=== PATIENT | male | born 1965 | race Caucasian/White ===

== ENCOUNTER → 2018-03-27 | Day surgery (SDC) | payer OTHER ==
[~2018-03-27] MED LIST: ATORVASTATIN CA20 MG PO; FENTANYL CITRATE/PF 100MCG/2 ML INJ ONE; LIDOCAINE HCL 2% LOCAL INJ 5 ML SDV VIAL INJ ONE; MIDAZOLAM HCL 2 MG/2 ML VIAL ONE; PROPOFOL IV EMULSION 10 MG/ML 20 ML VIAL ONE
--- OUTSIDE RECORDS SUMMARY | 2018-03-27 12:59 | XMS REPORT | Continuity of Care Document ---
Author Author [facility] Interface Address Unknown Phone Unavailable Problems Problem Status Onset Date Classification Date Reported Comments Source Anterior rhinorrhea 03/11/2018 Diagnosis 03/11/2018 [facility] Body mass index 40+ - severely obese 03/11/2018 Diagnosis 03/11/2018 [facility] Ear pressure sensation 03/11/2018 Diagnosis 03/11/2018 [facility] Congestion of nasal sinus 03/11/2018 Diagnosis 03/11/2018 [facility] Morbid obesity 12/03/2017 Diagnosis 12/04/2017 [facility] Acute bronchitis 12/03/2017 Diagnosis 12/04/2017 [facility] Influenza-like symptoms 12/03/2017 Diagnosis 12/04/2017 [facility] Acute pharyngitis 12/03/2017 Diagnosis 12/04/2017 [facility] Expiratory wheezing 02/27/2017 Diagnosis 02/27/2017 [facility] Influenza-like illness 02/27/2017 Diagnosis 02/27/2017 [facility] Posterior rhinorrhea 02/27/2017 Diagnosis 02/27/2017 [facility] Morbid obesity Active Problem 03/26/2018 [facility] Body mass index 40.0-44.9, adult Active Problem 02/14/2017 [facility] Prediabetes Active Problem 03/26/2018 [facility] Pure hypercholesterolemia Active Problem 03/26/2018 [facility] Mixed hyperlipidemia Active Problem 03/26/2018 [facility] Impotence of organic origin Active Problem 03/26/2018 [facility] Colon polyp Active Problem 02/14/2017 [facility] Testicular hypofunction Active Problem 03/26/2018 [facility] Personal history of malignant melanoma of skin Active Problem 03/26/2018 [facility] Right maxillary sinusitis Active Diagnosis 03/22/2017 [facility] Internal hemorrhoid, bleeding Active Diagnosis 02/02/2018 [facility] Neck pain Active Diagnosis 02/02/2018 [facility] Polyp of sigmoid colon, unspecified type Active Diagnosis 02/02/2018 [facility] Cervical radiculopathy Active Diagnosis 02/02/2018 [facility] Bronchitis Active Diagnosis 03/22/2017 [facility] Cough Active Diagnosis 03/22/2017 [facility] Screening for prostate cancer Active Diagnosis 02/21/2017 [facility] Routine physical examination Active Diagnosis 02/21/2017 [facility] Screening for colon cancer Active Diagnosis 02/21/2017 [facility] Elevated BP without diagnosis of hypertension Active Diagnosis 02/21/2017 [facility] Screening for HIV Active Diagnosis 02/21/2017 [facility] Prediabetes Active Problem 02/10/2016 [facility] Body mass index of 40.0-44.9 in adult Active Problem 02/10/2016 [facility] Hx of melanoma of skin Active Problem 04/08/2015 [facility] ED Active Problem 04/08/2015 [facility] High cholesterol Active Problem 04/08/2015 [facility] Low testosterone Active Problem 04/08/2015 [facility] Morbid obesity with BMI of 40.0-44.9, adult Active Problem 04/08/2015 [facility] Routine general medical examination at a health care facility Active Diagnosis 09/01/2014 [facility] Family history of early CAD Active Diagnosis 09/01/2014 [facility] Family history of diabetes mellitus Active Diagnosis 09/01/2014 [facility] Left knee pain Active Diagnosis 01/03/2015 [facility] Acute meniscal injury of left knee Active Diagnosis 01/03/2015 [facility] Chondromalacia Active Diagnosis 01/03/2015 [facility] Physical exam Active Diagnosis 03/24/2016 [facility] Needs flu shot Active Diagnosis 03/24/2016 [facility] Neoplasm of Uncertain Behavior of Skin Problem 03/11/2018 [facility] Conjunctivitis Problem 03/11/2018 [facility] Common Cold Problem 03/11/2018 [facility] Acute Sinusitis Problem 03/11/2018 [facility] Acute Upper Respiratory Infection Problem 03/11/2018 [facility] Allergic Rhinitis Problem 03/11/2018 [facility] Congestion of Nasal Sinus Problem 03/11/2018 [facility] Influenza Problem 03/11/2018 [facility] Influenza-like Symptoms Problem 03/11/2018 [facility] Wheezing Problem 03/11/2018 [facility] Cough Problem 03/11/2018 [facility] Medications Medication Details Route Status Patient Instructions Ordering Provider Order Date Source Cyclobenzaprine HCl 1 tablet as needed Orally Active 10 mg Orally Three times a day El 01/30/2018 [facility] Hydrocortisone Acetate 1 suppository Rectal Active 25 MG Rectal Three times a day PRN El 01/30/2018 [facility] Lipitor 1 tablet Orally Active 10 mg Orally qd LAST REFILL, NEEDS TO BE SEEN El 12/08/2017 [facility] DuoNeb 3 ml Inhalation Active 0.5-2.5 (3) MG/3ML Inhalation every 6 hrs El 03/07/2017 [facility] Ipratropium [place] 1 dose Inhalation Inactive 0.02 % Inhalation q 6 hours [facility] 03/07/2017 [facility] Ipratropium [place] HFA 2 puffs Inhalation Active 17 MCG/ACT Inhalation Four times a day El 03/05/2017 [facility] Tessalon Perles 1 capsule as needed Orally Active 100 mg Orally Three times a day El 03/05/2017 [facility] Cheratussin AC 5 ml Orally Active 100-10 MG/5ML Orally every 4 hrs El 03/05/2017 [facility] Albuterol Sulfate HFA 2 puffs as needed Inhalation Active 108 (90 Base) MCG/ACT Inhalation every 4-6 hrs El 03/05/2017 [facility] Doxycycline Hyclate 1 capsule Orally Active 100 mg Orally every 12 hrs El 03/05/2017 [facility] Ceftin 1 tablet Orally Active 250 MG Orally Twice a day El 03/01/2017 [facility] ProAir HFA 2 puffs as needed Inhalation Active 108 (90 Base) MCG/ACT Inhalation every 4 hrs El 03/01/2017 [facility] Sildenafil Citrate TAKE 2-5 TABLETS ONCE DAILY (ONLY IF NEEDED) FOR SEXUAL ACTIVITY orally Active 20 MG orally LAST REFILL, MUST SEE DOCTOR [facility] 05/09/2016 [facility] Atorvastatin Calcium 1 tablet Orally Active 10 MG Orally Once a day [facility] 04/10/2016 [facility] Viagra 1 tablet as needed Orally Active 100 MG Orally Once a day El 03/22/2016 [facility] Sildenafil Citrate 2-5 tablet Orally Active 20 MG Orally once a day (MUST SEE DOCTOR BEFORE NEXT REFILL) [facility] 02/09/2016 [facility] Sildenafil Citrate 1 tablet Orally Active 20 mg Orally 2 to 5 prn El 05/17/2015 [facility] Viagra 1 tablet as needed Orally Active 100 mg Orally Once a day as directed El 03/30/2015 [facility] Androderm 1 patch to skin at bedtime Transdermal Active 4 MG/24HR Transdermal Once a day El 12/30/2014 [facility] Androderm 1 patch to skin at bedtime Transdermal Active 4 MG/24HR Transdermal Once a day El 12/30/2014 [facility] Testim one tube Transdermal No Longer Active 50 MG/5GM Transdermal q am El 09/23/2014 [facility] Cialis 1 tablet Orally No Longer Active 5 MG Orally Once a day [place] 09/16/2014 [facility] Fortesta 2 pumps to each thigh Transdermal Active 10 MG/ACT (2%) Transdermal daily El 09/16/2014 [facility] Cialis 1 tablet per 3 days Orally Active 20 mg Orally as directed El 08/30/2014 [facility] Cheratussin AC 5 ml Orally Active 100-10 MG/5ML Orally every 4 hrs El [facility] Sildenafil Citrate TAKE 2-5 TABLETS BY MOUTH EVERY DAY NEEDED FOR SEXUAL ACTIVITY NA Active 20 MG El [facility] Naproxen 1 tablet Orally Active 500 MG Orally as needed (prn) El [facility] Atorvastatin Calcium 1 tablet Orally Active 10 mg Orally Once a day El [facility] Sildenafil Citrate TAKE 2-5 TABLETS BY MOUTH ONCE DAILY NEEDED FOR SEXUAL ACTIVITY NA Active 20 MG El [facility] ProAir HFA 2 puffs as needed Inhalation Active 108 (90 Base) MCG/ACT Inhalation every 4 hrs [facility] Ceftin 1 tablet Orally Active 250 MG Orally Twice a day [facility] 24 HR Testosterone 0.167 MG/HR Transdermal System [Androderm] Androderm 4 mg/24 hr transdermal 24 hour patch Active [facility] benzonatate 100 MG Oral Capsule benzonatate 100 mg capsule TAKE ONE CAPSULE BY MOUTH 3 TIMES A DAY Active [facility] Brompheniramine Maleate 0.4 MG/ML / Dextromethorphan Hydrobromide 2 MG/ML / Pseudoephedrine Hydrochloride 6 MG/ML Oral Solution [id number] 2 mg-30 mg-10 mg/5 mL syrup TAKE 10 ML EVERY 4 HOURS BY ORAL ROUTE NEEDED. Active [facility] tadalafil 5 MG Oral Tablet [Cialis] Cialis 5 mg tablet TAKE ONE TABLET BY MOUTH EVERY DAY Active [facility] 1 ML methylprednisolone acetate 80 MG/ML Injection [Depo-Medrol] Depo-Medrol 80 mg/mL suspension for injection 80 mg/mL IM injectable x 1 Active [facility] Fluticasone propionate 0.05 MG/ACTUAT Metered Dose Nasal [place] fluticasone 50 mcg/actuation nasal spray,suspension [place] 2 sprays every day by intranasal route as directed for 30 days. Active [facility] Hydrocodone Bitartrate 7.5 MG / Ibuprofen 200 MG Oral Tablet hydrocodone 7.5 mg-ibuprofen 200 mg tablet TAKE 1 TO 2 TABLETS BY MOUTH EVERY 4 HOURS NEEDED FOR PAIN Active [facility] 200 ACTUAT Albuterol 0.09 MG/ACTUAT Metered Dose Inhaler [ProAir] ProAir HFA 90 mcg/actuation aerosol inhaler Inhale 2 puffs every 4 hours by inhalation route as needed. Active [facility] Suprep Bowel Prep Kit 17.5 gram-3.13 gram-1.6 gram oral solution Suprep Bowel Prep Kit 17.5 gram-3.13 gram-1.6 gram oral solution TAKE DIRECTED Active [facility] Oseltamivir 75 MG Oral Capsule [Tamiflu] Tamiflu 75 mg capsule Take 1 capsule twice a day by oral route for 5 days. Active [facility] 5000 MG Testosterone 0.01 MG/MG Topical Gel testosterone 50 mg/5 gram (1 %) transdermal gel APPLY 1 PACKET EVERY MORNING Active [facility] Brompheniramine Maleate 0.4 MG/ML / Dextromethorphan Hydrobromide 2 MG/ML / Pseudoephedrine Hydrochloride 6 MG/ML Oral Solution [Bromfed DM] Bromfed DM 2 mg-30 mg-10 mg/5 mL syrup Take 10 mL every 4 hours by oral route as needed. Active [facility] atorvastatin 10 MG Oral Tablet atorvastatin 10 mg tablet TAKE 1 TABLET BY MOUTH EVERY DAY Active [facility] Azithromycin 250 MG Oral Tablet azithromycin 250 mg tablet Active [facility] Medrol (Kahlil) 4 mg tablets in a dose pack Medrol (Kahlil) 4 mg tablets in a dose pack Take by oral route as directed Active [facility] benzonatate 100 MG Oral Capsule [Tessalon Perles] Tessalon Perles 100 mg capsule Take 1 capsule 3 times a day by oral route as needed for 5 days. at least 6-8 hours apart Active [facility] Esomeprazole 20 MG / Naproxen 500 MG Delayed Release Oral Tablet [Vimovo] Vimovo 500 mg-20 mg tablet,immediate and delay release Active [facility] benzonatate 200 MG Oral Capsule benzonatate 200 mg capsule Take 1 capsule 3 times a day by oral route as directed for 10 days. Active [facility] Codeine Phosphate 2 MG/ML / Guaifenesin 20 MG/ML Oral Solution codeine 10 mg-guaifenesin 100 mg/5 mL oral liquid TAKE 1 TEASPOONFUL BY MOUTH EVERY 4 HOURS Active [facility] doxycycline hyclate 100 MG Oral Capsule doxycycline hyclate 100 mg capsule Active [facility] Albuterol 0.833 MG/ML / Ipratropium [place] 0.167 MG/ML Inhalant Solution ipratropium-albuterol 0.5 mg-3 mg(2.5 mg base)/3 mL nebulization soln USE 3ML VIA NEBULIZER EVERY 6 HOURS Active [facility] methylprednisolone 4 mg tablets in a dose pack methylprednisolone 4 mg tablets in a dose pack TAKE DIRECTED. Active [facility] Naproxen 500 MG Oral Tablet naproxen 500 mg tablet Active [facility] Omeprazole 40 MG Delayed Release Oral Capsule omeprazole 40 mg capsule,delayed release Active [facility] Ventolin HFA 90 mcg/actuation aerosol inhaler Ventolin HFA 90 mcg/actuation aerosol inhaler INHALE 2 PUFFS PO Q 4 TO 6 HOURS PRN Active [facility] 0.5 ML influenza A virus A/[place] (H3N2) antigen 0.03 MG/ML / influenza A virus A/EO0301 (H1N1) antigen 0.03 MG/ML / influenza B virus B/ antigen 0.03 MG/ML / influenza B virus B//[id number]/2016 antigen 0.03 MG/ML Prefilled Syringe [Flucelvax Quadrivalent ] Flucelvax Quad (PF) 60 mcg (15 mcg x 4)/0.5 mL IM syringe TO BE ADMINISTERED BY PHARMACIST FOR IMMUNIZATION Active [facility] Allergies, Adverse Reactions, Alerts Substance Category Reaction Severity Reaction type Status Date Reported Comments Source N.K.D.A. Adverse Reaction Info Not Available Adverse Reaction Active 01/30/2018 [facility] Immunizations Immunization Date Given Site Status Last Updated Comments Source influenza, injectable, quadrivalent 02/17/2018 completed [facility] Tdap 07/12/2011 completed [facility] yellow fever 07/12/2011 completed [facility] typhoid, ViCPs 07/12/2011 completed [facility] influenza, seasonal, injectable 12/21/2010 completed [facility] Results Order Name Results Value Reference Range Date Interpretation Comments Source RESULT negative 12/03/2017 [facility] SWAB LOCATION Left and Right tonsillar pillars 12/03/2017 [facility] Influenza A negative 12/03/2017 [facility] Influenza B negative 12/03/2017 [facility] Influenza A negative 02/27/2017 [facility] Influenza B negative 02/27/2017 [facility] Influenza A negative 02/29/2016 [facility] Influenza B negative 02/29/2016 [facility] Influenza A positive 08/15/2015 [facility] Influenza B negative 08/15/2015 [facility] Vital Signs Vital Sign Value Date Comments Source Diastolic (mm Hg) 86 03/10/2018 [facility] Height 74 03/10/2018 [facility] Systolic (mm Hg) 124 03/10/2018 [facility] Weight 340 03/10/2018 [facility] Weight 354 01/30/2018 [facility] Height 72 01/30/2018 [facility] Heart Rate 66 01/30/2018 [facility] Diastolic (mm Hg) 80 01/30/2018 [facility] Systolic (mm Hg) 122 01/30/2018 [facility] Diastolic (mm Hg) 74 12/03/2017 [facility] Height 74 12/03/2017 [facility] Systolic (mm Hg) 118 12/03/2017 [facility] Weight 340 12/03/2017 [facility] Weight 347 03/19/2017 [facility] Height 72 03/19/2017 [facility] Heart Rate 76 03/19/2017 [facility] Diastolic (mm Hg) 84 03/19/2017 [facility] Systolic (mm Hg) 128 03/19/2017 [facility] Weight 338 03/05/2017 [facility] Height 72 03/05/2017 [facility] Heart Rate 88 03/05/2017 [facility] Diastolic (mm Hg) 66 03/05/2017 [facility] Systolic (mm Hg) 120 03/05/2017 [facility] Weight 343 03/01/2017 [facility] Height 72 03/01/2017 [facility] Heart Rate 74 03/01/2017 [facility] Diastolic (mm Hg) 80 03/01/2017 [facility] Systolic (mm Hg) 140 03/01/2017 [facility] Diastolic (mm Hg) 64 02/27/2017 [facility] Height 74 02/27/2017 [facility] Systolic (mm Hg) 118 02/27/2017 [facility] Weight 325 02/27/2017 [facility] Weight 348 02/18/2017 [facility] Height 72 02/18/2017 [facility] Heart Rate 73 02/18/2017 [facility] Diastolic (mm Hg) 90 02/18/2017 [facility] Systolic (mm Hg) 140 02/18/2017 [facility] Weight 322 03/22/2016 [facility] Height 72 03/22/2016 [facility] Diastolic (mm Hg) 70 03/22/2016 [facility] Systolic (mm Hg) 128 03/22/2016 [facility] Diastolic (mm Hg) 78 02/29/2016 [facility] Height 74 02/29/2016 [facility] Systolic (mm Hg) 120 02/29/2016 [facility] Weight 325 02/29/2016 [facility] Diastolic (mm Hg) 82 08/15/2015 [facility] Height 74 08/15/2015 [facility] Systolic (mm Hg) 120 08/15/2015 [facility] Weight 325 08/15/2015 [facility] Weight 331 04/18/2015 [facility] Height 72 04/18/2015 [facility] Heart Rate 78 04/18/2015 [facility] Diastolic (mm Hg) 80 04/18/2015 [facility] Systolic (mm Hg) 126 04/18/2015 [facility] Weight 325 12/30/2014 [facility] Height 72 12/30/2014 [facility] Heart Rate 63 12/30/2014 [facility] Diastolic (mm Hg) 78 12/30/2014 [facility] Systolic (mm Hg) 130 12/30/2014 [facility] Weight 325 12/21/2014 [facility] Height 72 12/21/2014 [facility] Diastolic (mm Hg) 80 12/21/2014 [facility] Systolic (mm Hg) 128 12/21/2014 [facility] Weight 320 09/16/2014 [facility] Height 72 09/16/2014 [facility] Heart Rate 72 09/16/2014 [facility] Diastolic (mm Hg) 84 09/16/2014 [facility] Systolic (mm Hg) 120 09/16/2014 [facility] Weight 320 08/30/2014 [facility] Height 72 08/30/2014 [facility] Heart Rate 80 08/30/2014 [facility] Diastolic (mm Hg) 74 08/30/2014 [facility] Systolic (mm Hg) 130 08/30/2014 [facility] Encounters Location Location Details Encounter Type Encounter Number Reason For Visit Attending Provider ADM Date DC Date Status Source [facility] PHYSICAL [id number] 08/30/2014 08/30/2014 [facility] PHYSICAL [id number] 08/30/2014 08/30/2014 [facility] PHYSICAL [id number] 08/30/2014 08/30/2014 [facility] PHYSICAL [id number] 08/30/2014 08/30/[address] [facility] PHYSICAL [id number] 08/30/2014 08/30/[address] [facility] PHYSICAL [id number] 08/30/2014 08/30/[address] [facility] PHYSICAL [id number] 08/30/2014 08/30/[address] [facility] PHYSICAL [id number] 08/30/2014 08/30/2014 [facility] PHYSICAL [id number] 08/30/2014 08/30/[address] [facility] PHYSICAL [id number] 08/30/2014 08/30/[address] [facility] PHYSICAL [id number] 08/30/2014 08/30/2014 [facility] PHYSICAL [id number] 08/30/2014 08/30/2014 [facility] PHYSICAL [id number] 08/30/2014 08/30/2014 [facility] PHYSICAL [id number] 08/30/2014 08/30/2014 [facility] PHYSICAL [id number] 08/30/2014 08/30/2014 [facility] PHYSICAL [id number] 08/30/2014 08/30/2014 [facility] PHYSICAL [id number] 08/30/2014 08/30/2014 [facility] PHYSICAL [id number] 08/30/2014 08/30/2014 [facility] PHYSICAL [id number] 08/30/2014 08/30/2014 [facility] 2 week follow up [id number] 09/16/2014 09/16/2014 [facility] 2 week follow up [id number] 09/16/2014 09/16/2014 [facility] 2 week follow up [id number] 09/16/2014 09/16/2014 [facility] 2 week follow up [id number] 09/16/2014 09/16/2014 [facility] 2 week follow up [id number] 09/16/2014 09/16/2014 [facility] 2 week follow up [id number] 09/16/2014 09/16/2014 [facility] 2 week follow up [id number] 09/16/2014 09/16/2014 [facility] 2 week follow up [id number] 09/16/2014 09/16/2014 [facility] 2 week follow up [id number] 09/16/2014 09/16/2014 [facility] 2 week follow up [id number] 09/16/2014 09/16/2014 [facility] 2 week follow up [id number] 09/16/2014 09/16/2014 [facility] 2 week follow up [id number] 09/16/2014 09/16/2014 [facility] 2 week follow up [id number] 09/16/2014 09/16/2014 [facility] 2 week follow up [id number] 09/16/2014 09/16/2014 [facility] 2 week follow up [id number] 09/16/2014 09/16/2014 [facility] 2 week follow up [id number] 09/16/2014 09/16/2014 [facility] 2 week follow up [id number] 09/16/2014 09/16/2014 [facility] 2 week follow up [id number] 09/16/2014 09/16/2014 [facility] Unknown [id number] 09/23/2014 09/23/2014 [facility] Unknown [id number] 09/23/2014 09/23/2014 [facility] Unknown [id number] 09/23/2014 09/23/2014 [facility] Unknown [id number] 09/23/2014 09/23/2014 [facility] Unknown [id number] 09/23/2014 09/23/2014 [facility] Unknown [id number] 09/23/2014 09/23/2014 [facility] Unknown [id number] 09/23/2014 09/23/2014 [facility] Unknown [id number] 09/23/2014 09/23/2014 [facility] Unknown [id number] 09/23/2014 09/23/2014 [facility] Unknown [id number] 09/23/2014 09/23/2014 [facility] Unknown [id number] 09/23/2014 09/23/2014 [facility] Unknown [id number] 09/23/2014 09/23/2014 [facility] Unknown [id number] 09/23/2014 09/23/2014 [facility] Unknown [id number] 09/23/2014 09/23/2014 [facility] Unknown [id number] 09/23/2014 09/23/2014 [facility] Unknown [id number] 09/23/2014 09/23/2014 [facility] Unknown [id number] 09/23/2014 09/23/2014 [facility] Unknown [id number] 09/23/2014 09/23/2014 [facility] 3 MONTH FOLLOW UP [id number] 12/21/2014 12/21/2014 [facility] 3 MONTH FOLLOW UP [id number] 12/21/2014 12/21/2014 [facility] 3 MONTH FOLLOW UP [id number] 12/21/2014 12/21/[address] [facility] 3 MONTH FOLLOW UP [id number] 12/21/2014 12/21/2014 [facility] 3 MONTH FOLLOW UP [id number] 12/21/2014 12/21/2014 [facility] 3 MONTH FOLLOW UP [id number] 12/21/2014 12/21/2014 [facility] 3 MONTH FOLLOW UP [id number] 12/21/2014 12/21/2014 [facility] 3 MONTH FOLLOW UP [id number] 12/21/2014 12/21/2014 [facility] 3 MONTH FOLLOW UP [id number] 12/21/2014 12/21/2014 [facility] 3 MONTH FOLLOW UP [id number] 12/21/2014 12/21/2014 [facility] 3 MONTH FOLLOW UP [id number] 12/21/2014 12/21/2014 [facility] 3 MONTH FOLLOW UP [id number] 12/21/2014 12/21/2014 [facility] 3 MONTH FOLLOW UP [id number] 12/21/2014 12/21/2014 [facility] 3 MONTH FOLLOW UP [id number] 12/21/2014 12/21/2014 [facility] 3 MONTH FOLLOW UP [id number] 12/21/2014 12/21/2014 [facility] 3 MONTH FOLLOW UP [id number] 12/21/2014 12/21/2014 [facility] 3 MONTH FOLLOW UP [id number] 12/21/2014 12/21/2014 [facility] follow up on mri [id number] 12/30/2014 12/30/[address] [facility] follow up on mri [id number] 12/30/2014 12/30/2014 [facility] follow up on mri [id number] 12/30/2014 12/30/[address] [facility] follow up on mri [id number] 12/30/2014 12/30/[address] [facility] follow up on mri [id number] 12/30/2014 12/30/[address] [facility] follow up on mri [id number] 12/30/2014 12/30/[address] [facility] follow up on mri [id number] 12/30/2014 12/30/2014 [facility] follow up on mri [id number] 12/30/2014 12/30/2014 [facility] follow up on mri [id number] 12/30/2014 12/30/[address] [facility] follow up on mri [id number] 12/30/2014 12/30/2014 [facility] follow up on mri [id number] 12/30/2014 12/30/2014 [facility] follow up on mri [id number] 12/30/2014 12/30/2014 [facility] follow up on mri [id number] 12/30/2014 12/30/2014 [facility] follow up on mri [id number] 12/30/2014 12/30/2014 [facility] follow up on mri [id number] 12/30/2014 12/30/[address] [facility] follow up on mri [id number] 12/30/2014 12/30/2014 [facility] refill [id number] 02/09/2015 02/09/2015 [facility] refill [id number] 02/09/2015 02/09/2015 [facility] refill [id number] 02/09/2015 02/09/2015 [facility] refill [id number] 02/09/2015 02/09/2015 [facility] refill [id number] 02/09/2015 02/09/2015 [facility] refill [id number] 02/09/2015 02/09/2015 [facility] refill [id number] 02/09/2015 02/09/2015 [facility] refill [id number] 02/09/2015 02/09/2015 [facility] refill [id number] 02/09/2015 02/09/2015 [facility] refill [id number] 02/09/2015 02/09/2015 [facility] refill [id number] 02/09/2015 02/09/2015 [facility] refill [id number] 02/09/2015 02/09/2015 [facility] refill [id number] 02/09/2015 02/09/2015 [facility] refill [id number] 02/09/2015 02/09/2015 [facility] refill [id number] 02/09/2015 02/09/2015 [facility] Unknown [id number] 02/21/2015 02/21/2015 [facility] Unknown [id number] 02/21/2015 02/21/2015 [facility] Unknown [id number] 02/21/2015 02/21/2015 [facility] Unknown [id number] 02/21/2015 02/21/2015 [facility] Unknown [id number] 02/21/2015 02/21/2015 [facility] Unknown [id number] 02/21/2015 02/21/2015 [facility] Unknown [id number] 02/21/2015 02/21/2015 [facility] Unknown [id number] 02/21/2015 02/21/2015 [facility] Unknown [id number] 02/21/2015 02/21/2015 [facility] Unknown [id number] 02/21/2015 02/21/2015 [facility] Unknown [id number] 02/21/2015 02/21/2015 [facility] Unknown [id number] 02/21/2015 02/21/2015 [facility] Unknown [id number] 02/21/2015 02/21/2015 [facility] Unknown [id number] 02/21/2015 02/21/2015 [facility] Cialis 5 mg [id number] 02/22/2015 02/22/2015 [facility] Cial[facility] 5 mg [id number] 02/22/2015 02/22/2015 [facility] Cial[facility] 5 mg [id number] 02/22/2015 02/22/2015 [facility]ial[facility] 5 mg [id number] 02/22/2015 02/22/2015 [facility]ial[facility] 5 mg [id number] 02/22/2015 02/22/2015 [facility]ial[facility] 5 mg [id number] 02/22/2015 02/22/2015 [facility] Cial[facility] 5 mg [id number] 02/22/2015 02/22/2015 [facility]ial[facility] 5 mg [id number] 02/22/2015 02/22/2015 [facility]ial[facility] 5 mg [id number] 02/22/2015 02/22/2015 [facility]ial[facility] 5 mg [id number] 02/22/2015 02/22/2015 [facility]ial[facility] 5 mg [id number] 02/22/2015 02/22/2015 [facility] 5 mg [id number] 02/22/2015 02/22/2015 [facility] 5 mg [id number] 02/22/2015 02/22/2015 [facility] REFILL [id number] 02/24/2015 02/24/2015 [facility] REFILL [id number] 02/24/2015 02/24/2015 [facility] REFILL [id number] 02/24/2015 02/24/2015 [facility] REFILL [id number] 02/24/2015 02/24/2015 [facility] REFILL [id number] 02/24/2015 02/24/2015 [facility] REFILL [id number] 02/24/2015 02/24/2015 [facility] REFILL [id number] 02/24/2015 02/24/2015 [facility] REFILL [id number] 02/24/2015 02/24/2015 [facility] REFILL [id number] 02/24/2015 02/24/2015 [facility] REFILL [id number] 02/24/2015 02/24/2015 [facility] REFILL [id number] 02/24/2015 02/24/2015 [facility] REFILL [id number] 02/24/2015 02/24/2015 [facility] REFILL [id number] 02/24/2015 02/24/2015 [facility] REFILL [id number] 02/24/2015 02/24/2015 [facility] REFILL [id number] 02/24/2015 02/24/2015 [facility] Prior Auth [id number] 03/03/2015 03/03/2015 [facility] Prior Auth [id number] 03/03/2015 03/03/2015 [facility] Prior Auth [id number] 03/03/2015 03/03/2015 [facility] Prior Auth [id number] 03/03/2015 03/03/2015 [facility] Prior Auth [id number] 03/03/2015 03/03/2015 [facility] Prior Auth [id number] 03/03/2015 03/03/2015 [facility] Prior Auth [id number] 03/03/2015 03/03/2015 [facility] Prior Auth [id number] 03/03/2015 03/03/2015 [facility] Prior Auth [id number] 03/03/2015 03/03/2015 [facility] Prior Auth [id number] 03/03/2015 03/03/2015 [facility] Prior Auth [id number] 03/03/2015 03/03/2015 [facility] Prior Auth [id number] 03/03/2015 03/03/2015 [facility] Unknown [id number] 03/29/2015 03/29/2015 [facility] Unknown [id number] 03/29/2015 03/29/2015 [facility] Unknown [id number] 03/30/2015 03/30/2015 [facility] Unknown [id number] 03/30/2015 03/30/2015 [facility] Unknown [id number] 03/30/2015 03/30/2015 [facility] Unknown [id number] 03/30/2015 03/30/2015 [facility] Unknown [id number] 03/30/2015 03/30/2015 [facility] Unknown [id number] 03/30/2015 03/30/2015 [facility] Unknown [id number] 03/30/2015 03/30/2015 [facility] Unknown [id number] 03/30/2015 03/30/2015 [facility] [facility] Unknown [id number] 03/30/2015 03/30/2015 [facility] Unknown [id number] 04/06/2015 04/06/2015 [facility] Unknown [id number] 04/06/2015 04/06/2015 [facility] Unknown [id number] 04/06/2015 04/06/2015 [facility] Unknown [id number] 04/06/2015 04/06/2015 [facility] Unknown [id number] 04/06/2015 04/06/2015 [facility] Unknown [id number] 04/06/2015 04/06/2015 [facility] Unknown [id number] 04/06/2015 04/06/2015 [facility] Unknown [id number] 04/06/2015 04/06/2015 [facility] Unknown [id number] 04/06/2015 04/06/2015 [facility] Unknown [id number] 04/06/2015 04/06/2015 [facility] consult- med/ testosterone [id number] 04/18/2015 04/18/2015 [facility] consult- med/ testosterone [id number] 04/18/2015 04/18/2015 [facility] consult- med/ testosterone [id number] 04/18/2015 04/18/2015 [facility] consult- med/ testosterone [id number] 04/18/2015 04/18/2015 [facility] consult- med/ testosterone [id number] 04/18/2015 04/18/2015 [facility] consult- med/ testosterone [id number] 04/18/2015 04/18/2015 [facility] consult- med/ testosterone [id number] 04/18/2015 04/18/2015 [facility] consult- med/ testosterone [id number] 04/18/2015 04/18/2015 [facility] consult- med/ testosterone [id number] 04/18/2015 04/18/2015 [facility] Unknown [id number] 05/17/2015 05/17/2015 [facility] Unknown [id number] 05/17/2015 05/17/2015 [facility] Unknown [id number] 05/17/2015 05/17/2015 [facility] Unknown [id number] 05/17/2015 05/17/2015 [facility] Unknown [id number] 05/17/2015 05/17/2015 [facility] Unknown [id number] 05/17/2015 05/17/2015 [facility] Unknown [id number] 05/17/2015 05/17/2015 [facility] Unknown [id number] 05/17/2015 05/17/2015 [facility] Refill [id number] 06/23/2015 06/23/2015 [facility] Refill [id number] 06/23/2015 06/23/2015 [facility] Refill [id number] 06/23/2015 06/23/2015 [facility] Refill [id number] 06/23/2015 06/23/2015 [facility] Refill [id number] 06/23/2015 06/23/2015 [facility] Refill [id number] 06/23/2015 06/23/2015 [facility] Refill [id number] 06/23/2015 06/23/2015 [facility] NEW RX [id number] 07/07/2015 07/07/2015 [facility] NEW RX [id number] 07/07/2015 07/07/2015 [facility] NEW RX [id number] 07/07/2015 07/07/2015 [facility] NEW RX [id number] 07/07/2015 07/07/2015 [facility] NEW RX [id number] 07/07/2015 07/07/2015 [facility] NEW RX [id number] 07/07/2015 07/07/2015 [facility] [place] [facility] - [id number] Nikole Cole, CLINICAL RESEARCH NURSE COORDINATOR: [address] [facility] , [place] [address], Ph. [id number] Nikole Cole 08/15/2015 [facility] Unknown [id number] 02/09/2016 02/09/2016 [facility] Unknown [id number] 02/09/2016 02/09/2016 [facility] Unknown [id number] 02/09/2016 02/09/2016 [facility] Unknown [id number] 02/09/2016 02/09/2016 [facility] Unknown [id number] 02/09/2016 02/09/2016 [facility] [place] [facility] [id number] Yamilet Everettah, HELP DESK SPECIALIST: [address] [address], [address] [facility], [place] [address], Ph. [id number] Yamilet Mendenhall 02/29/2016 [facility] [place] [facility] [id number] Yamilet Mendenhall, HELP DESK SPECIALIST: [address] [facility] [address], [address], [place] [address], Ph. [id number] Yamilet Everettah 02/29/2016 [facility] REFILLS [id number] 03/22/2016 03/22/2016 [facility] REFILLS [id number] 03/22/2016 03/22/2016 [facility] REFILLS [id number] 03/22/2016 03/22/2016 [facility] REFILLS [id number] 03/22/2016 03/22/2016 [facility] Test results [id number] 04/10/2016 04/10/2016 [facility] Test results [id number] 04/10/2016 04/10/[address] [facility] Test results [id number] 04/10/2016 04/10/2016 [facility] Test results [id number] 04/10/2016 04/10/[address] [facility] Test results [id number] 04/10/2016 04/10/2016 [facility] Test results [id number] 04/10/2016 04/10/[address] [facility] [id number] 04/19/2016 04/19/2016 [facility] [place] [facility] - [id number]_Gyysewahlázaro Petersen NP-C: [address] [place] [address], Ph. [id number] San[facility] Petersen 02/27/2017 [facility] [place] [facility] - [id number]_Vivtny Talpa Yamilet [facility], HELP DESK SPECIALIST: [address] [address], [address], [place] [address], Ph. [id number] Yamilet [facility] 12/03/2017 [facility] [place] [facility] - [id number] Talpa JOSELYN Sarabia-C: [address] [facility] [address], [address] [address], Ph. [id number] Richard Chan 03/10/2018 [facility] Procedures Procedure Code Date Perfomer Comments Source Appendectomy [facility] Removal of Tonsils [facility] Removal of Tonsils [id number] [facility]
--- OUTSIDE RECORDS SUMMARY | 2018-03-27 12:59 | XMS REPORT | Clinical Summary ---
Author Author [facility] [facility] Organization [facility] Address Unknown Phone Unavailable Care Team Providers Care Buying Intern Name Role Phone Mery Schaefer DO PCP Allergies Not on File Medications Not on file Active Problems Not on file Encounters Care Team Description Date Type Specialty Jose R Sánchez MD Patellofemoral disorder, right (Primary Dx); Osteoarthritis of right knee, unspecified osteoarthritis type 09/02/2017 Transcribe Physical Therapy Orders after 03/26/2017 Social History Date Tobacco Use Types Packs/Day Years Used Never Assessed Sex Assigned at Date Recorded Not on file Industry Job Start Date Occupation Not on file Not on file Not on file Travel End Travel History Travel Start No recent travel history available. Last Filed Vital Signs Not on file Plan of Treatment Health Maintenance Due Date Last Done Comments COLON CANCER SCREENING 2016 SHINGRIX VACCINE (1 of 2) 2016 INFLUENZA VACCINE 11/20/2017 HEPATITIS B VACCINES Aged Out No longer eligible based on patient's age to complete this topic IPV VACCINES Aged Out No longer eligible based on patient's age to complete this topic MENINGOCOCCAL VACCINE Aged Out No longer eligible based on patient's age to complete this topic Results Not on fileafter 03/26/2017 Insurance Payer Benefit Subscriber ID Type Phone Address Plan / Group [facility] P[facility] xxxxxxxxx [facility] Advance Directives Patient has advance care planning documents on file. For more information, michael mohr contact: Fransisco Palomo [address] [place] [address]
--- OUTSIDE RECORDS SUMMARY | 2018-03-27 13:00 | XMS REPORT ---
Author Author Mery Montaño Organization [employer] Address Unknown Phone Unavailable Care Team Providers Care Presto Log Operator Name Role Phone Mery Montaño CP Unavailable Allergies No Known Allergies Problems Problem Type Condition Code Onset Dates Condition Status Problem Prediabetes R73.03 Active Problem Pure hypercholesterolemia E78.0 Active Problem Mixed hyperlipidemia E78.2 Active Problem Impotence of organic origin N52.9 Active Problem Morbid obesity E66.01 Active Problem Testicular hypofunction E29.1 Active Problem Personal history of malignant melanoma of skin Z85.820 Active Medications No Known Medications Results No Known Results Summary Purpose [employer] Submission
--- OUTSIDE RECORDS SUMMARY | 2018-03-27 13:00 | XMS REPORT ---
Author Author Miguelangel Gallegos Organization [employer] Address Unknown Phone Unavailable Care Team Providers Care Entry Level Account Manager Name Role Phone Miguelangel Gallegos CP Unavailable Encounters Encounter Location Date 3 MONTH FOLLOW UP [facility] Dec 21, 2014 follow up on mri [facility] Dec 30, 2014 refill [facility] Feb 09, 2015 REFILL [facility] Feb 24, 2015 PHYSICAL [facility] August 30, 2014 2 week follow up [facility] September 16, 2014 Unknown [facility] September 23, 2014 Prior Auth [facility] Mar 03, 2015 Unknown [facility] Feb 21, 2015 Cialis 5 mg [facility] Feb 22, 2015 consult- med/ testosterone [facility] Apr 18, 2015 Unknown [facility] May 17, 2015 Unknown [facility] Mar 29, 2015 Unknown [facility] Apr 06, 2015 Problems Problem Type Condition ICD-9 Code Onset Dates Condition Status Problem Personal history of malignant melanoma of skin Z85.820 Active Problem Testicular hypofunction E29.1 Active Problem Pure hypercholesterolemia E78.0 Active Problem Prediabetes 790.29 Active Problem Morbid obesity E66.01 Active Problem Impotence of organic origin N52.9 Active Problem Body mass index (BMI) of 40.0-44.9 in adult V85.41 Active Problem Colon polyp 211.3 Active Medications Medication Code System Code Instructions Start Date End Date Status Dosage Sildenafil Citrate MEDISPAN [address]-63 20 mg Orally 2 to 5 prn May 17, 2015 Jun 16, 2015 Active 1 tablet Social History Social History Element Qualifiers Date Reported Last Colonoscopy: . 11/2014Apr 18, 2015 Where or with whom do you live ? . alone Apr 18, 2015 Depression Screening: . negative Apr 18, 2015 hobbies/sports . Rugby Apr 18, 2015 children . None Apr 18, 2015 Ethnicity . Status , Is thai your primary language? Yes Apr 18, 2015 Tobacco Use: . Are you a: never smoker Apr 18, 2015 Do you have pets? . Status: Yes, Type: dog(s) Apr 18, 2015 Marital Status: single. Apr 18, 2015 Caffeine intake? . Status: Yes, What type: Soft Drinks Apr 18, 2015 Do you drink alcohol? . Status: Yes, Type: Wine, Beer, Liquor, How often? Weekly Apr 18, 2015 Occupation: . works in [employer] couplings Apr 18, 2015 Summary Purpose [employer] Submission
--- OUTSIDE RECORDS SUMMARY | 2018-03-27 13:00 | XMS REPORT ---
Author Author Miguelangel Gallegos Organization [employer] Address Unknown Phone Unavailable Care Team Providers Care Fitness Worker Name Role Phone Miguelangel Gallegos CP Unavailable Allergies, Adverse Reactions, Alerts Substance Reaction Event Type N.K.D.A. Info Not Available Non Drug Allergy Problems Problem Type Condition Code Onset Dates Condition Status Assessment Mixed hyperlipidemia E78.2 Active Assessment Bronchitis J40 Active Assessment Prediabetes R73.03 Active Problem Prediabetes R73.03 Active Problem Pure hypercholesterolemia E78.0 Active Problem Mixed hyperlipidemia E78.2 Active Problem Impotence of organic origin N52.9 Active Problem Morbid obesity E66.01 Active Problem Testicular hypofunction E29.1 Active Problem Personal history of malignant melanoma of skin Z85.820 Active Assessment Right maxillary sinusitis J32.0 Active Assessment Cough R05 Active Assessment Pure hypercholesterolemia E78.0 Active Medications Medication Code System Code Instructions Start Date End Date Status Dosage Atorvastatin Calcium ND 30126556789 10 mg Orally Once a day Active 1 tablet Sildenafil Citrate ND 88268517160 20 MG Active TAKE 2-5 TABLETS BY MOUTH ONCE DAILY NEEDED FOR SEXUAL ACTIVITY Androderm ND 26522703233 4 MG/24HR Transdermal Once a day Dec 30, 2014 Active 1 patch to skin at bedtime Cheratussin AC ND 60720388588 100-10 MG/5ML Orally every 4 hrs Active 5 ml DuoNeb NDC 0 0.5-2.5 (3) MG/3ML Inhalation every 6 hrs Mar 07, 2017 Active 3 ml Vital Signs Date/Time: Mar 19, 2017 BMI 47.06 Index Weight 347 lbs Height 72 in Cardiac Monitoring Heart Rate 76 /min Blood Pressure Diastolic 84 mm Hg Blood Pressure Systolic 128 mm Hg Results No Known Results Summary Purpose [employer] Submission
--- OUTSIDE RECORDS SUMMARY | 2018-03-27 13:00 | XMS REPORT ---
Author Author Mery Montaño Organization [employer] Address Unknown Phone Unavailable Care Team Providers Care Full Stack Php Developer Name Role Phone Mery Montaño CP Unavailable Allergies No Known Allergies Problems Problem Type Condition Code Onset Dates Condition Status Problem Morbid obesity E66.01 Active Problem Mixed hyperlipidemia E78.2 Active Problem Prediabetes R73.03 Active Problem Right maxillary sinusitis J32.0 Active Problem Personal history of malignant melanoma of skin Z85.820 Active Problem Impotence of organic origin N52.9 Active Problem Pure hypercholesterolemia E78.0 Active Problem Testicular hypofunction E29.1 Active Medications Medication Code System Code Instructions Start Date End Date Status Dosage DuoNeb NDC 0 0.5-2.5 (3) MG/3ML Inhalation every 6 hrs Mar 07, 2017 Active 3 ml Ipratropium [place] NDC 77889339363 0.02 % Inhalation q 6 hours Mar 07, 2017 Mar 07, 2017 Inactive 1 dose Results No Known Results Summary Purpose [employer] Submission
--- OUTSIDE RECORDS SUMMARY | 2018-03-27 13:00 | XMS REPORT ---
Author Author Miguelangel Gallegos Organization [employer] Address Unknown Phone Unavailable Care Team Providers Care Green Chain Marker Name Role Phone Miguelangel Gallegos CP Unavailable Allergies, Adverse Reactions, Alerts Substance Reaction Event Type N.K.D.A. 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 Problem Morbid obesity E66.01 Active Problem Testicular hypofunction E29.1 Active Problem Personal history of malignant melanoma of skin Z85.820 Active Medications Medication Code System Code Instructions Start Date End Date Status Dosage Ceftin [facility] 04840490908 250 MG Orally Twice a day Mar 01, 2017 Mar 11, 2017 Active 1 tablet Sildenafil Citrate [facility] 23451741575 20 MG Active TAKE 2-5 TABLETS BY MOUTH ONCE DAILY NEEDED FOR SEXUAL ACTIVITY ProAir HFA [facility] 77036480539 108 (90 Base) MCG/ACT Inhalation every 4 hrs Mar 01, 2017 Active 2 puffs as needed Androderm [facility] 78634035197 4 MG/24HR Transdermal Once a day Dec 30, 2014 Active 1 patch to skin at bedtime Atorvastatin Calcium [facility] 20998448616 10 mg Orally Once a day Active 1 tablet Vital Signs Date/Time: Mar 01, 2017 BMI 46.51 Index Weight 343 lbs Height 72 in Cardiac Monitoring Heart Rate 74 /min Blood Pressure Diastolic 80 mm Hg Blood Pressure Systolic 140 mm Hg Results No Known Results Summary Purpose [employer] Submission
--- OUTSIDE RECORDS SUMMARY | 2018-03-27 13:00 | XMS REPORT ---
Author Author Miguelangel Gallegos Organization [employer] Address Unknown Phone Unavailable Care Team Providers Care Medication Manager Name Role Phone Miguelangel Gallegos CP Unavailable Allergies, Adverse Reactions, Alerts Substance Reaction Event Type N.K.D.A. 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 Problem Morbid obesity E66.01 Active Problem Testicular hypofunction E29.1 Active Problem Personal history of malignant melanoma of skin Z85.820 Active Assessment Morbid obesity E66.01 Active Assessment Impotence of organic origin N52.9 Active Assessment Elevated BP without diagnosis of hypertension R03.0 Active Assessment Pure hypercholesterolemia E78.0 Active Assessment Testicular hypofunction E29.1 Active Assessment Personal history of malignant melanoma of skin Z85.820 Active Assessment Mixed hyperlipidemia E78.2 Active Assessment Prediabetes R73.03 Active Assessment Screening for HIV (human immunodeficiency virus) Z11.4 Active Medications Medication Code System Code Instructions Start Date End Date Status Dosage Androderm [facility] 43391555348 4 MG/24HR Transdermal Once a day Dec 30, 2014 Active 1 patch to skin at bedtime Atorvastatin Calcium ND 87158504160 10 mg Orally Once a day Active 1 tablet Sildenafil Citrate ND 04163867594 20 MG Active TAKE 2-5 TABLETS BY MOUTH ONCE DAILY NEEDED FOR SEXUAL ACTIVITY Vital Signs Date/Time: Feb 18, 2017 BMI 47.19 Index Weight 348 lbs Height 72 in Cardiac Monitoring Heart Rate 73 /min Blood Pressure Diastolic 90 mm Hg Blood Pressure Systolic 140 mm Hg Results Name Result Date Reference Range Unit Abnormality Flag Chest 2 views- Xray Summary Purpose [employer] Submission
--- OUTSIDE RECORDS SUMMARY | 2018-03-27 13:00 | XMS REPORT ---
Author Author Miguelangel Gallegos Organization [employer] Address Unknown Phone Unavailable Care Team Providers Care Consulting Practice Manager Name Role Phone Miguelangel Gallegos CP Unavailable Allergies, Adverse Reactions, Alerts Substance Reaction Event Type N.K.D.A. Info Not Available Non Drug Allergy Encounters Encounter Location Date PHYSICAL [facility] August 30, 2014 Problems Problem Type Condition ICD-9 Code Onset Dates Condition Status Assessment ED (erectile dysfunction) 607.84 Active Assessment Morbid obesity with BMI of 40.0-44.9, adult 278.01 Active Assessment Body mass index (BMI) of 40.0-44.9 in adult V85.41 Active Problem Body mass index (BMI) of 40.0-44.9 in adult V85.41 Active Problem ED (erectile dysfunction) 607.84 Active Problem Morbid obesity with BMI of 40.0-44.9, adult 278.01 Active Assessment Routine general medical examination at a health care facility V70.0 Active Assessment Hx of melanoma of skin V10.82 Active Problem Colon polyp 211.3 Active Problem Hx of melanoma of skin V10.82 Active Assessment Family history of early CAD V17.3 Active Assessment Family history of diabetes mellitus (DM) V18.0 Active Assessment Colon polyp 211.3 Active Medications Medication Code System Code Instructions Start Date End Date Status Dosage Cialis MEDISPAN [address]-29 20 mg Orally as directed August 30, 2014 September 29, 2014 Active 1 tablet per 3 days Social History Social History Element Qualifiers Date Reported Last Colonoscopy: . 2010August 30, 2014 Ethnicity . Status , Is mohawk your primary language? Yes August 30, 2014 Where or with whom do you live ? . alone August 30, 2014 Depression Screening: . negative August 30, 2014 hobbies/sports . Rugby August 30, 2014 children . None August 30, 2014 Tobacco Use: . Are you a: never smoker August 30, 2014 Marital Status: single. August 30, 2014 Do you drink alcohol? . Status: Yes, Type: Wine, Beer, Liquor, How often? Weekly August 30, 2014 Occupation: . works in [employer] August 30, 2014 Vital Signs Date/Time: August 30, 2014 Weight 320 lbs Height 72 in Cardiac Monitoring Heart Rate 80 /min Blood Pressure Diastolic 74 mm Hg Blood Pressure Systolic 130 mm Hg Results Urinalysis, Routine Urobilinogen,Semi-Qn(-0.0-1.9 mg/dL) 0.2 Bilirubin(-Negative ) Negative Urine-Color(-Yellow ) Yellow Appearance(-Clear ) Clear WBC Esterase(-Negative ) Negative Protein(-Negative/Trace ) Negative Glucose(-Negative ) Negative Ketones(-Negative ) Negative Specific Rudolph(-1.005-1.030 ) 1.022 Occult Blood(-Negative ) Negative Microscopic Examination(- ) Comment pH(-5.0-7.5 ) 6.0 Nitrite, Urine(-Negative ) Negative CBC With Differential/Platelet Basos(- %) 0 MCV(-79-97 fL) 89 Hematocrit(-37.5-51.0 %) 44.4 Eos(- %) 2 MCHC(-31.5-35.7 g/dL) 33.3 Monocytes(- %) 8 MCH(-26.6-33.0 pg) 29.8 Lymphs(- %) 31 Eos (Absolute)(-0.0-0.4 x10E3/uL) 0.1 WBC(-3.4-10.8 x10E3/uL) 8.9 Monocytes(Absolute)(-0.1-0.9 x10E3/uL) 0.7 Lymphs (Absolute)(-0.7-3.1 x10E3/uL) 2.7 Hemoglobin(-12.6-17.7 g/dL) 14.8 Neutrophils (Absolute)(-1.4-7.0 x10E3/uL) 5.3 RBC(-4.14-5.80 x10E6/uL) 4.97 Immature Grans (Abs)(-0.0-0.1 x10E3/uL) 0.0 Immature Granulocytes(- %) 0 Neutrophils(- %) 59 Baso (Absolute)(-0.0-0.2 x10E3/uL) 0.0 RDW(-12.3-15.4 %) 14.0 Platelets(-150-379 x10E3/uL) 280 Comp. Metabolic Panel (14) A/G Ratio(-1.1-2.5 ) 2.6 Globulin, Total(-1.5-4.5 g/dL) 1.8 Alkaline Phosphatase, S(-39-117 IU/L) 91 Bilirubin, Total(-0.0-1.2 mg/dL) 0.8 Chloride, Serum(-97-108 mmol/L) 100 ALT (SGPT)(-0-44 IU/L) 20 Potassium, Serum(-3.5-5.2 mmol/L) 4.5 AST (SGOT)(-0-40 IU/L) 15 Sodium, Serum(-134-144 mmol/L) 141 BUN/Creatinine Ratio(-9-20 ) 14 eGFR If Africn Am(- >59 mL/min/1.73) 124 Calcium, Serum(-8.7-10.2 mg/dL) 9.4 Carbon Dioxide, Total(-18-29 mmol/L) 23 Albumin, Serum(-3.5-5.5 g/dL) 4.6 Protein, Total, Serum(-6.0-8.5 g/dL) 6.4 Glucose, Serum(-65-99 mg/dL) 95 BUN(-6-24 mg/dL) 11 Creatinine, Serum(-0.76-1.27 mg/dL) 0.79 eGFR If NonAfricn Am(- >59 mL/min/1.73) 107 TSH TSH(-0.450-4.500 uIU/mL) 2.250 Testosterone, Serum Comment:(- ) Comment Testosterone, Serum(-348-1197 ng/dL) 262 Prostate-Specific Ag, Serum Prostate Specific Ag, Serum(-0.0-4.0 ng/mL) 1.2 Hemoglobin A1c Hemoglobin A1c(-4.8-5.6 %) 5.9 Lipid Panel HDL Cholesterol(->39 mg/dL) 58 Triglycerides(-0-149 mg/dL) 202 LDL Cholesterol Calc(-0-99 mg/dL) 125 VLDL Cholesterol Prince(-5-40 mg/dL) 40 Cholesterol, Total(-100-199 mg/dL) 223 Summary Purpose eClinicalWorks Submission
--- OUTSIDE RECORDS SUMMARY | 2018-03-27 13:00 | XMS REPORT ---
Author Author Mery Montaño Organization [employer] Address Unknown Phone Unavailable Care Team Providers Care Hvac/R Instructor Name Role Phone Mery Montaño CP Unavailable [...]
--- OUTSIDE RECORDS SUMMARY | 2018-03-27 13:00 | XMS REPORT ---
Author Author Miguelangel Gallegos Organization [employer] Address Unknown Phone Unavailable Care Team Providers Care Bindery Production Manager Name Role Phone Miguelangel Gallegos CP Unavailable Allergies, Adverse Reactions, Alerts Substance Reaction Event Type N.K.D.A. Info Not Available Non Drug Allergy Problems Problem Type Condition Code Onset Dates Condition Status Assessment Internal hemorrhoid, bleeding K64.8 Active Assessment Neck pain M54.2 Active Assessment Polyp of sigmoid colon, unspecified type D12.5 Active Assessment Cervical radiculopathy M54.12 Active Problem Prediabetes R73.03 Active Problem Pure hypercholesterolemia E78.0 Active Problem Mixed hyperlipidemia E78.2 Active Problem Impotence of organic origin N52.9 Active Problem Morbid obesity E66.01 Active Problem Testicular hypofunction E29.1 Active Problem Personal history of malignant melanoma of skin Z85.820 Active Medications Medication Code System Code Instructions Start Date End Date Status Dosage Lipitor [facility] [address]-49 10 mg Orally qd LAST REFILL, NEEDS TO BE SEEN Dec 08, 2017 Active 1 tablet Cheratussin AC ND 84736307575 100-10 MG/5ML Orally every 4 hrs Active 5 ml Cyclobenzaprine HCl ND 05980057248 10 mg Orally Three times a day Jan 30, 2018 Feb 09, 2018 Active 1 tablet as needed Sildenafil Citrate ND 37711295498 20 MG Active TAKE 2-5 TABLETS BY MOUTH EVERY DAY NEEDED FOR SEXUAL ACTIVITY Naproxen ND 90237011673 500 MG Orally as needed (prn) Active 1 tablet DuoNeb NDC 0 0.5-2.5 (3) MG/3ML Inhalation every 6 hrs Mar 07, 2017 Active 3 ml Atorvastatin Calcium ND 72883506913 10 mg Orally Once a day Active 1 tablet Hydrocortisone Acetate ND 01439694698 25 MG Rectal Three times a day PRN Jan 30, 2018 Feb 09, 2018 Active 1 suppository Androderm ND 94742227640 4 MG/24HR Transdermal Once a day Dec 30, 2014 Active 1 patch to skin at bedtime Vital Signs Date/Time: Jan 30, 2018 BMI 48.01 Index Weight 354 lbs Height 72 in Cardiac Monitoring Heart Rate 66 /min Blood Pressure Diastolic 80 mm Hg Blood Pressure Systolic 122 mm Hg Results Name Result Date Reference Range Unit Abnormality Flag HEMOCCULT CARD Summary Purpose eClinicalWorks Submission
--- OUTSIDE RECORDS SUMMARY | 2018-03-27 13:00 | XMS REPORT ---
Author Author Miguelangel Gallegos [facility] e[employer] Address Unknown Phone Unavailable Care Team Providers Care Seed Production Field Supervisor Name Role Phone Miguelangel Gallegos CP Unavailable Allergies, Adverse Reactions, Alerts Substance Reaction Event Type N.K.D.A. Info Not Available Non Drug Allergy Encounters Encounter Location Date PHYSICAL [facility] August 30, 2014 2 week follow up [facility] September 16, 2014 Unknown [facility] September 23, 2014 Problems Problem Type Condition ICD-9 Code Onset Dates Condition Status Assessment Body mass index (BMI) of 40.0-44.9 in adult V85.41 Active Problem Hx of melanoma of skin V10.82 Active Assessment ED (erectile dysfunction) 607.84 Active Problem Prediabetes 790.29 Active Problem High cholesterol 272.0 Active Problem Low testosterone 257.2 Active Problem ED (erectile dysfunction) 607.84 Active Problem Colon polyp 211.3 Active Problem Morbid obesity with BMI of 40.0-44.9, adult 278.01 Active Problem Body mass index (BMI) of 40.0-44.9 in adult V85.41 Active Assessment High cholesterol 272.0 Active Assessment Prediabetes 790.29 Active Assessment Low testosterone 257.2 Active Assessment Morbid obesity with BMI of 40.0-44.9, adult 278.01 Active Medications Medication Code System Code Instructions Start Date End Date Status Dosage Cialis MEDISPAN [address]-36 5 MG Orally every 24 hrs September 16, 2014 Mar 15, 2015 Active 1 tablet Fortesta MEDISPAN [address]-52 10 MG/ACT (2%) Transdermal daily September 16, 2014 Active 2 pumps to each thigh Cialis MEDISPAN [address]-80 20 mg Orally as directed August 30, 2014 September 29, 2014 Active 1 tablet per 3 days Social History Social History Element Qualifiers Date Reported Last Colonoscopy: . 2010September 22, 2014 Ethnicity . Status , Is panamanian your primary language? Yes September 22, 2014 Where or with whom do you live ? . alone September 22, 2014 Depression Screening: . negative September 22, 2014 hobbies/sports . Rugby September 22, 2014 children . None September 22, 2014 Tobacco Use: . Are you a: never smoker September 22, 2014 Marital Status: single. September 22, 2014 Do you drink alcohol? . Status: Yes, Type: Wine, Beer, Liquor, How often? Weekly September 22, 2014 Occupation: . works in [employer] September 22, 2014 Vital Signs Date/Time: September 16, 2014 Weight 320 lbs Height 72 in Cardiac Monitoring Heart Rate 72 /min Blood Pressure Diastolic 84 mm Hg Blood Pressure Systolic 120 mm Hg Summary Purpose eClinicalWorks Submission
--- OUTSIDE RECORDS SUMMARY | 2018-03-27 13:00 | XMS REPORT ---
Author Author Miguelangel Gallegos Organization [employer] Address Unknown Phone Unavailable Care Team Providers Care City Planner Name Role Phone Miguelangel Gallegos CP Unavailable Allergies, Adverse Reactions, Alerts Substance Reaction Event Type N.K.D.A. Info Not Available Non Drug Allergy Problems Problem Type Condition Code Onset Dates Condition Status Assessment Prediabetes R73.03 Active Problem Morbid obesity E66.01 Active Assessment Bronchitis J40 Active Problem Mixed hyperlipidemia E78.2 Active Problem Prediabetes R73.03 Active Problem Right maxillary sinusitis J32.0 Active Problem Personal history of malignant melanoma of skin Z85.820 Active Problem Impotence of organic origin N52.9 Active Problem Pure hypercholesterolemia E78.0 Active Problem Testicular hypofunction E29.1 Active Assessment Right maxillary sinusitis J32.0 Active Assessment Cough R05 Active Assessment Pure hypercholesterolemia E78.0 Active Assessment Mixed hyperlipidemia E78.2 Active Medications Medication Code System Code Instructions Start Date End Date Status Dosage Ipratropium [place] HFA [facility] [place] [facility] [address]-22 17 MCG/ACT Inhalation Four times a day Mar 05, 2017 Apr 04, 2017 Active 2 puffs ProAir HFA [facility] [place] 38000766596 108 (90 Base) MCG/ACT Inhalation every 4 hrs Inactive 2 puffs as needed Tessalon Perles [facility] [place] 90080749902 100 mg Orally Three times a day Mar 05, 2017 Mar 15, 2017 Active 1 capsule as needed Cheratussin AC [facility] [place] 2] 69488532231 100-10 MG/5ML Orally every 4 hrs Mar 05, 2017 Active 5 ml Sildenafil Citrate [facility] [place] 2] 92374497708 20 MG Active TAKE 2-5 TABLETS BY MOUTH ONCE DAILY NEEDED FOR SEXUAL ACTIVITY Ceftin [facility] [place] 06178564161 250 MG Orally Twice a day Active 1 tablet Albuterol Sulfate HFA [facility] [place] 2] [address]-80 108 (90 Base) MCG/ACT Inhalation every 4-6 hrs Mar 05, 2017 Active 2 puffs as needed Atorvastatin Calcium [facility] [place] 2] 05606109771 10 mg Orally Once a day Active 1 tablet Doxycycline Hyclate [facility] [place] 2] 22683996632 100 mg Orally every 12 hrs Mar 05, 2017 Mar 15, 2017 Active 1 capsule Androderm [facility] [place] 2] 00690021673 4 MG/24HR Transdermal Once a day Dec 30, 2014 Active 1 patch to skin at bedtime Vital Signs Date/Time: Mar 05, 2017 BMI 45.84 Index Weight 338 lbs Height 72 in Cardiac Monitoring Heart Rate 88 /min Blood Pressure Diastolic 66 mm Hg Blood Pressure Systolic 120 mm Hg Results No Known Results Summary Purpose eClinicalWorks Submission
--- OUTSIDE RECORDS SUMMARY | 2018-03-27 13:00 | XMS REPORT ---
Author Author Miguelangel Gallegos Organization [employer] Address Unknown Phone Unavailable Care Team Providers Care Census Taker Name Role Phone Miguelangel Gallegos CP Unavailable Allergies, Adverse Reactions, Alerts Substance Reaction Event Type N.K.D.A. Info Not Available Non Drug Allergy Encounters Encounter Location Date 3 MONTH FOLLOW UP [facility] Dec 21, 2014 PHYSICAL [facility] August 30, 2014 2 week follow up [facility] September 16, 2014 Unknown [facility] September 23, 2014 Problems Problem Type Condition ICD-9 Code Onset Dates Condition Status Assessment Prediabetes 790.29 Active Problem Hx of melanoma of skin V10.82 Active Assessment Low testosterone 257.2 Active Assessment Left knee pain 719.46 Active Assessment High cholesterol 272.0 Active Problem Prediabetes 790.29 Active Problem High cholesterol 272.0 Active Problem Low testosterone 257.2 Active Problem ED (erectile dysfunction) 607.84 Active Problem Colon polyp 211.3 Active Problem Morbid obesity with BMI of 40.0-44.9, adult 278.01 Active Problem Body mass index (BMI) of 40.0-44.9 in adult V85.41 Active Medications Medication Code System Code Instructions Start Date End Date Status Dosage Testim MEDISPAN [address]-63 50 MG/5GM Transdermal q am September 23, 2014 Active one tube Cialis MEDISPAN [address]-28 5 MG Orally every 24 hrs September 16, 2014 Mar 15, 2015 Active 1 tablet Social History Social History Element Qualifiers Date Reported Last Colonoscopy: . 11/2014Dec 21, 2014 Where or with whom do you live ? . alone Dec 21, 2014 Depression Screening: . negative Dec 21, 2014 hobbies/sports . Rugby Dec 21, 2014 children . None Dec 21, 2014 Ethnicity . Status , Is tristanian your primary language? Yes Dec 21, 2014 Tobacco Use: . Are you a: never smoker Dec 21, 2014 Do you have pets? . Status: Yes, Type: dog(s) Dec 21, 2014 Marital Status: single. Dec 21, 2014 Caffeine intake? . Status: Yes, What type: Soft Drinks Dec 21, 2014 Do you drink alcohol? . Status: Yes, Type: Wine, Beer, Liquor, How often? Weekly Dec 21, 2014 Occupation: . works in [employer] Dec 21, 2014 Vital Signs Date/Time: Dec 21, 2014 Weight 325 lbs Height 72 in Blood Pressure Diastolic 80 mm Hg Blood Pressure Systolic 128 mm Hg Results Prostate-Specific Ag, Serum Prostate Specific Ag, Serum(-0.0-4.0 ng/mL) 1.4 CBC With Differential/Platelet MCHC(-31.5-35.7 g/dL) 33.1 MCH(-26.6-33.0 pg) 29.8 Platelets(-150-379 x10E3/uL) 264 RDW(-12.3-15.4 %) 13.7 Immature Granulocytes(- %) 0 Immature Grans (Abs)(-0.0-0.1 x10E3/uL) 0.0 Lymphs(- %) 31 Monocytes(- %) 8 Neutrophils(- %) 59 Neutrophils (Absolute)(-1.4-7.0 x10E3/uL) 4.4 Hematocrit(-37.5-51.0 %) 42.9 Lymphs (Absolute)(-0.7-3.1 x10E3/uL) 2.3 MCV(-79-97 fL) 90 RBC(-4.14-5.80 x10E6/uL) 4.77 Eos(- %) 2 Basos(- %) 0 Hemoglobin(-12.6-17.7 g/dL) 14.2 Baso (Absolute)(-0.0-0.2 x10E3/uL) 0.0 WBC(-3.4-10.8 x10E3/uL) 7.4 Monocytes(Absolute)(-0.1-0.9 x10E3/uL) 0.6 Eos (Absolute)(-0.0-0.4 x10E3/uL) 0.2 Summary Purpose eClinicalWorks Submission
--- OUTSIDE RECORDS SUMMARY | 2018-03-27 13:00 | XMS REPORT ---
Author Author Mery Montaño Organization e[employer] Address Unknown Phone Unavailable Care Team Providers Care Weatherization Crew Leader Name Role Phone Mery Montaño CP Unavailable Allergies No Known Allergies Problems Problem Type Condition Code Onset Dates Condition Status Problem Morbid obesity E66.01 Active Problem Body mass index 40.0-44.9, adult Z68.41 Active Problem Prediabetes R73.03 Active Problem Pure hypercholesterolemia E78.0 Active Problem Mixed hyperlipidemia E78.2 Active Problem Impotence of organic origin N52.9 Active Problem Colon polyp 211.3 Active Problem Testicular hypofunction E29.1 Active Problem Personal history of malignant melanoma of skin Z85.820 Active Medications No Known Medications Results No Known Results Summary Purpose eClinicalWorks Submission
--- OUTSIDE RECORDS SUMMARY | 2018-03-27 13:00 | XMS REPORT ---
Author Author Mery Montaño Organization [employer] Address Unknown Phone Unavailable Care Team Providers Care [place] Opener Name Role Phone Mery Montaño CP Unavailable [...]
--- OUTSIDE RECORDS SUMMARY | 2018-03-27 13:00 | XMS REPORT ---
Author Author Vale Alba Organization [employer] Address Unknown Phone Unavailable Care Team Providers Care Rigging Foreman Name Role Phone Vale Alba CP Unavailable Allergies No Known Allergies Problems Problem Type Condition Code Onset Dates Condition Status Problem Impotence of organic origin N52.9 Active Problem Personal history of malignant melanoma of skin Z85.820 Active Problem Prediabetes R73.03 Active Problem Testicular hypofunction E29.1 Active Problem Mixed hyperlipidemia E78.2 Active Problem Colon polyp 211.3 Active Problem Morbid obesity E66.01 Active Problem Pure hypercholesterolemia E78.0 Active Problem Body mass index 40.0-44.9, adult Z68.41 Active Medications No Known Medications Results No Known Results Summary Purpose eClinicalWorks Submission
--- OUTSIDE RECORDS SUMMARY | 2018-03-27 13:01 | XMS REPORT ---
Author Author Miguelangel Gallegos Organization [employer] Address Unknown Phone Unavailable Care Team Providers Care Optical Assistant Name Role Phone Miguelangel Gallegos CP Unavailable Allergies, Adverse Reactions, Alerts Substance Reaction Event Type N.K.D.A. Info Not Available Non Drug Allergy Encounters Encounter Location Date [address] [facility] Dec 21, [address] [facility] Dec 30, [address] [facility] Feb 09, [address] [facility] Feb 24, [address] [facility] August 30, [address] [facility] September 16, [address] [facility] September 23, [address] [facility] Mar 03, [address] [facility] Feb 21, [address] [facility] Feb 22, 2015 consult- med/ testosterone [facility] Apr 18, [address] [facility] Mar 29, [address] [facility] Apr 06, 2015 Problems Problem Type Condition ICD-9 Code Onset Dates Condition Status Assessment Testicular hypofunction E29.1 Active Problem Personal history of malignant melanoma of skin Z85.820 Active Assessment Impotence of organic origin N52.9 Active Problem Testicular hypofunction E29.1 Active Problem Pure hypercholesterolemia E78.0 Active Problem Prediabetes 790.29 Active Problem Morbid obesity E66.01 Active Problem Impotence of organic origin N52.9 Active Problem Body mass index (BMI) of 40.0-44.9 in adult V85.41 Active Problem Colon polyp 211.3 Active Medications Medication Code System Code Instructions Start Date End Date Status Dosage Androderm MEDISPAN [address]-78 4 MG/24HR Transdermal Once a day Dec 30, 2014 Active 1 patch to skin at bedtime Viagra MEDISPAN [address]-32 100 mg Orally Once a day as directed Mar 30, 2015 September 26, 2015 Active 1 tablet as needed Social History Social History Element Qualifiers Date Reported Last Colonoscopy: . 11/2014Apr 18, 2015 Where or with whom do you live ? . alone Apr 18, 2015 Depression Screening: . negative Apr 18, 2015 hobbies/sports . Rugby Apr 18, 2015 children . None Apr 18, 2015 Ethnicity . Status , Is gibraltarian your primary language? Yes Apr 18, 2015 [...] Apr 18, 2015 Occupation: . works in [employer] Apr 18, 2015 Family history Qualifier Description Comment Date Reported Maternal Grandmother Comment not available Apr 18, 2015 Paternal Grandmother Comment not available Apr 18, 2015 Siblings Comment not available Apr 18, 2015 Maternal Grandfather Comment not available Apr 18, 2015 Children Comment not available Apr 18, 2015 Father alive Comment not available Apr 18, 2015 Paternal Grandfather Comment not available Apr 18, 2015 Mother Comment not available Apr 18, 2015 Other: Comment not available Apr 18, 2015 Vital Signs Date/Time: Apr 18, 2015 Weight 331 lbs Height 72 in Cardiac Monitoring Heart Rate 78 /min Blood Pressure Diastolic 80 mm Hg Blood Pressure Systolic 126 mm Hg Results CBC With Differential/Platelet Summary Purpose eClinicalWorks Submission
--- OUTSIDE RECORDS SUMMARY | 2018-03-27 13:01 | XMS REPORT ---
Author Author Mery Schaefer [facility] [place] eClinicalWorks Address Unknown Phone Unavailable Care Team Providers Care Tile Sprayer Name Role Phone Mery Schaefer Unavailable Encounters Encounter Location Date 3 MONTH FOLLOW UP [facility] Dec 21, 2014 follow up on mri [facility] Dec 30, 2014 refill [facility] Feb 09, 2015 REFILL [facility] Feb 24, 2015 PHYSICAL [facility] August 30, 2014 Unknown [facility] Mar 29, 2015 2 week follow up [facility] September 16, 2014 Unknown [facility] September 23, 2014 Prior Auth [facility] Mar 03, 2015 Unknown [facility] Feb 21, 2015 Cialis 5 mg [facility] Feb 22, 2015 Problems Problem Type Condition ICD-9 Code Onset Dates Condition Status Problem Hx of melanoma of skin V10.82 Active Problem Prediabetes 790.29 Active Problem High cholesterol 272.0 Active Problem Low testosterone 257.2 Active Problem ED (erectile dysfunction) 607.84 Active Problem Colon polyp 211.3 Active Problem Morbid obesity with BMI of 40.0-44.9, adult 278.01 Active Problem Body mass index (BMI) of 40.0-44.9 in adult V85.41 Active Medications Medication Code System Code Instructions Start Date End Date Status Dosage Cialis MEDISPAN [address]-42 5 MG Orally Once a day September 16, 2014 May 10, 2015 Inactive 1 tablet Viagra MEDISPAN [address]-77 100 mg Orally Once a day as directed Mar 30, 2015 September 26, 2015 Active 1 tablet as needed Social History Social History Element Qualifiers Date Reported Last Colonoscopy: . 11/2014Dec 30, 2014 Where or with whom do you live ? . alone Dec 30, 2014 Depression Screening: . negative Dec 30, 2014 hobbies/sports . [place] Dec 30, 2014 children . None Dec 30, 2014 Ethnicity . Status , Is uzbek your primary language? Yes Dec 30, 2014 Tobacco Use: . Are you a: never smoker Dec 30, 2014 Do you have pets? . Status: Yes, Type: dog(s) Dec 30, 2014 Marital Status: single. Dec 30, 2014 Caffeine intake? . Status: Yes, What type: Soft Drinks Dec 30, 2014 Do you drink alcohol? . Status: Yes, Type: Wine, Beer, Liquor, How often? Weekly Dec 30, 2014 Occupation: . works in [employer] Dec 30, 2014 Summary Purpose eClinicalWorks Submission
--- OUTSIDE RECORDS SUMMARY | 2018-03-27 13:01 | XMS REPORT ---
Author Author Mery Montaño Organization eClinicalWorks Address Unknown Phone Unavailable Care Team Providers Care Package Sealer Machine Name Role Phone Mery Montaño Unavailable Encounters Encounter Location Date 3 MONTH FOLLOW UP [facility] Dec 21, 2014 follow up on mri [facility] Dec 30, 2014 refill [facility] Feb 09, 2015 REFILL [facility] Feb 24, 2015 PHYSICAL [facility] August 30, 2014 2 week follow up [facility] September 16, 2014 Unknown [facility] September 23, 2014 Prior Auth [facility] Mar 03, 2015 Unknown [facility] Feb 21, 2015 Cialis 5 mg [facility] Feb 22, 2015 Refill [facility] June 23, 2015 NEW RX [facility] July 07, 2015 consult- med/ testosterone [facility] Apr 18, 2015 Unknown [facility] May 17, 2015 Unknown [facility] Mar 29, 2015 Unknown [facility] Apr 06, 2015 [...] Date End Date Status Dosage Androderm MEDISPAN [address]-59 4 MG/24HR Transdermal Once a day Dec 30, 2014 Active 1 patch to skin at bedtime Social History Social History Element Qualifiers Date Reported Last Colonoscopy: . 11/2014Apr 18, 2015 Where or with whom do you live ? . alone Apr 18, 2015 Depression Screening: . negative Apr 18, 2015 hobbies/sports . [place] Apr 18, 2015 children . None Apr 18, 2015 Ethnicity . Status , Is sierra leonean your primary language? Yes Apr 18, 2015 [...] Apr 18, 2015 Occupation: . works in [employer] Apr 18, 2015 Summary Purpose eClinicalWorks Submission
--- OUTSIDE RECORDS SUMMARY | 2018-03-27 13:01 | XMS REPORT ---
Author Author Miguelangel Gallegos Organization eClinicalWorks Address Unknown Phone Unavailable Care Team Providers Care Basting Marker Name Role Phone Miguelangel Gallegos CP Unavailable Allergies, Adverse Reactions, Alerts Substance Reaction Event Type N.K.D.A. Info Not Available Non Drug Allergy Encounters Encounter Location Date 3 MONTH FOLLOW UP [facility] Dec 21, 2014 follow up on mri [facility] Dec 30, 2014 refill [facility] Feb 09, 2015 REFILL [facility] Feb 24, 2015 PHYSICAL [facility] August 30, 2014 2 week follow up [facility] September 16, 2014 Unknown [facility] September 23, 2014 Prior Auth [facility] Mar 03, 2015 Unknown [facility] Feb 21, 2015 Cialis 5 mg [facility] Feb 22, 2015 Unknown [facility] Feb 09, 2016 REFILLS [facility] Mar 22, 2016 Refill [facility] June 23, 2015 NEW RX [facility] July 07, 2015 consult- med/ testosterone [facility] Apr 18, 2015 Unknown [facility] May 17, 2015 Unknown [facility] Mar 29, 2015 Unknown [facility] Apr 06, 2015 Problems Problem Type Condition ICD-9 Code Onset Dates Condition Status Assessment Personal history of malignant melanoma of skin Z85.820 Active Problem Personal history of malignant melanoma of skin Z85.820 Active Assessment Physical exam Z00.00 Active Problem Testicular hypofunction E29.1 Active Problem Pure hypercholesterolemia E78.0 Active Problem Prediabetes R73.03 Active Problem Morbid obesity E66.01 Active Problem Impotence of organic origin N52.9 Active Problem Body mass index 40.0-44.9, adult Z68.41 Active Problem Colon polyp 211.3 Active Assessment Impotence of organic origin N52.9 Active Assessment Prediabetes R73.03 Active Assessment Needs flu shot Z23 Active Assessment Body mass index 40.0-44.9, adult Z68.41 Active Assessment Testicular hypofunction E29.1 Active Assessment Pure hypercholesterolemia E78.0 Active Medications Medication Code System Code Instructions Start Date End Date Status Dosage Sildenafil Citrate MEDISPAN [address]-62 20 MG Orally once a day (MUST SEE DOCTOR BEFORE NEXT REFILL) Feb 09, 2016 Active 2-5 tablet Viagra MEDISPAN [address]-98 100 MG Orally Once a day Mar 22, 2016 Apr 22, 2016 Active 1 tablet as needed Androderm MEDISPAN [address]-60 4 MG/24HR Transdermal Once a day Dec 30, 2014 Active 1 patch to skin at bedtime Social History Social History Element Qualifiers Date Reported Last Colonoscopy: . 11/2014Mar 22, 2016 Where or with whom do you live ? . alone Mar 22, 2016 Depression Screening: . negative Mar 22, 2016 hobbies/sports . [place] Mar 22, 2016 children . None Mar 22, 2016 Ethnicity . Status , Is kazakh your primary language? Yes Mar 22, 2016 Tobacco Use: . Are you a: never smoker Mar 22, 2016 Do you have pets? . Status: Yes, Type: dog(s) Mar 22, 2016 Marital Status: single. has girlfriend Mar 22, 2016 Caffeine intake? . Status: Yes, What type: Soft Drinks Mar 22, 2016 Do you drink alcohol? . Status: Yes, Type: Wine, Beer, Liquor, How often? Weekly Mar 22, 2016 Occupation: . works in [employer] Mar 22, 2016 Family history Qualifier Description Comment Date Reported Maternal Grandmother Comment not available Mar 22, 2016 Paternal Grandmother Comment not available Mar 22, 2016 Siblings Comment not available Mar 22, 2016 Maternal Grandfather Comment not available Mar 22, 2016 Children Comment not available Mar 22, 2016 Father alive Comment not available Mar 22, 2016 Paternal Grandfather Comment not available Mar 22, 2016 Mother Comment not available Mar 22, 2016 Other: Comment not available Mar 22, 2016 Vital Signs Date/Time: Mar 22, 2016 Weight 322 lbs Height 72 in Blood Pressure Diastolic 70 mm Hg Blood Pressure Systolic 128 mm Hg Summary Purpose eClinicalWorks Submission
--- OUTSIDE RECORDS SUMMARY | 2018-03-27 13:01 | XMS REPORT | Encounter Summary ---
Author Organization Unknown Address [address] [place] [id number] Phone [phone] Care Team Providers Care Corrosion Engineer Name Role Phone Mery Schaefer MD 3 [phone] Reason for Visit Medical Complaint Instructions 1. Expiratory wheezing Medrol (Kahlil) 4 mg tablets in a dose pack oral corticosteroids: care instructions wheezing or bronchoconstriction: care instructions 2. Influenza-like illness rapid flu (A+B) 3. Cough Bromfed DM 2 mg-30 mg-10 mg/5 mL syrup cough: care instructions Tessalon Perles 100 mg capsule 4. Posterior rhinorrhea fluticasone 50 mcg/actuation nasal spray,suspension Discussion Note Pt in NAD, understands all information provided Plan of Care Patient Instructions Pt will take meds as prescribed with 8oz glass of water. Please seek care (PCP, Urgent Care, ER) or [facility] if symptoms get worse or do not resolve in 1 week. Reminders Provider Appointments None recorded. Lab Rapid Flu (A+B) 02/27/2017 [facility] Referral None recorded. Procedures None recorded. Surgeries None recorded. Imaging None recorded. Medications Name Start Date Androderm 4 mg/24 hr transdermal 24 hour patch atorvastatin 10 mg tablet azithromycin 250 mg tablet Bromfed DM 2 mg-30 mg-10 mg/5 mL syrup Take 10 mL every 4 hours by oral route as needed. Cialis 5 mg tablet TAKE ONE TABLET BY MOUTH EVERY DAY Depo-Medrol 80 mg/mL suspension for injection 80 mg/mL IM injectable x 1 fluticasone 50 mcg/actuation nasal spray,suspension Swisher 1 spray twice a day by intranasal route for 30 days. hydrocodone 7.5 mg-ibuprofen 200 mg tablet TAKE 1 TO 2 TABLETS BY MOUTH EVERY 4 HOURS NEEDED FOR PAIN Medrol (Kahlil) 4 mg tablets in a dose pack Take by oral route as directed ProAir HFA 90 mcg/actuation aerosol inhaler Inhale 2 puffs every 4 hours by inhalation route as needed. Suprep Bowel Prep Kit 17.5 gram-3.13 gram-1.6 gram oral solution TAKE DIRECTED Tamiflu 75 mg capsule Take 1 capsule twice a day by oral route for 5 days. Tessalon Perles 100 mg capsule Take 1 capsule 3 times a day by oral route as needed for 5 days. at least 6-8 hours apart testosterone 50 mg/5 gram (1 %) transdermal gel APPLY 1 PACKET EVERY MORNING Vimovo 500 mg-20 mg tablet,immediate and delay release Medications Administered None recorded. Vitals Height Weight BMI Blood Pressure 6 ft 2 in 325 lbs 41.7 kg/m2 118/64 mm[Hg] Lab Results Date Name Specimen Result Interpretation Description Value Range Status Address Rapid Flu (A+B) Influenza a negative [facility]: [address] [place] [address] Influenza B negative [facility]: [address] [place] [address] Allergies Code Code System Name Reaction Severity Status Onset NKDA Problems Name Status Onset Date Source Neoplasm of Uncertain Behavior of Skin Active Encounter Conjunctivitis Active Encounter Common Cold Active Encounter Acute Sinusitis Active Encounter Acute Upper Respiratory Infection Active Encounter Allergic Rhinitis Active Encounter Congestion of Nasal Sinus Active Encounter Influenza Active Encounter Influenza-like Symptoms Active Encounter Wheezing Active Encounter Cough Active Encounter Procedures Date Name Performed by Appendectomy Information not available Removal of Tonsils Information not available Vaccine List Vaccine Type influenza, seasonal, injectable 12/21/2010 Tdap 07/12/2011 typhoid, ViCPs 07/12/2011 yellow fever 07/12/2011 Social History Smoking Status Never Smoker Past Encounters 02/27/2017 Expiratory Wheezing; Influenza-like Illness; Cough; Posterior Rhinorrhea [employer]: [address] [place] [address], Ph. History of Present Illness Cough Reported By: Patient HPI: Location: chest. Quality: hacking cough, dry cough. Duration: 5 days. Context: no sick contacts, no foreign travel, non-smoker. Associated Symptoms: no sputum production, no shortness of breath, no sweats, no significant weight gain, no significant weight loss, no morning cough, no sore throat, no vomiting, no diarrhea, no rash, no nausea, no fever/chills, no muscle aches, no headache, wheezing Review of Systems:ROS as noted in the HPI Review of Systems Basic Reported By: Patient Physical Exam Adult Basic, Adult Male Complete Reported By: Patient Constitutional: General Appearance: healthy-appearing, well-nourished, well-developed. Level of Distress: NAD. Ambulation: ambulating normally Psychiatric: Mental Status: active and alert. Orientation: to time, to place, to person Osh-Tmap-Hciwa-Throat: Ears: no lesions on external ear, no outer ear tenderness, EACs clear, TMs clear, TM mobility normal. Hearing: no hearing loss. Nose: no lesions on external nose, nares patent, no septal deviation, nasal passages clear, no sinus tenderness, post nasal drip. Lips, Teeth, and Gums: no mouth or lip ulcers, no bleeding gums, normal dentition. Oropharynx: moist mucous membranes, no erythema, no exudates, tonsils not enlarged Lungs: Respiratory effort: no dyspnea, no tachypnea, no use of accessory muscles, no intercostal retractions. Auscultation: expiratory wheezing Cardiovascular: Heart Auscultation: RRR, no murmurs Neurologic: Gait and Station: normal gait, normal station
--- OUTSIDE RECORDS SUMMARY | 2018-03-27 13:01 | XMS REPORT ---
Author Author Miguelangel Gallegos Organization eClinicalWorks Address Unknown Phone Unavailable Care Team Providers Care Screen Printing Inspector Name Role Phone Miguelangel Gallegos CP Unavailable Allergies, Adverse Reactions, Alerts Substance Reaction Event Type N.K.D.A. Info Not Available Non Drug Allergy Encounters Encounter Location Date 3 MONTH FOLLOW UP [facility] Dec 21, 2014 follow up on mri [facility] Dec 30, 2014 PHYSICAL [facility] August 30, 2014 2 week follow up [facility] September 16, 2014 Unknown [facility] September 23, 2014 Problems Problem Type Condition ICD-9 Code Onset Dates Condition Status Assessment Left knee pain 719.46 Active Problem Hx of melanoma of skin V10.82 Active Assessment Acute meniscal injury of left knee 959.7 Active Problem Prediabetes 790.29 Active Problem High cholesterol 272.0 Active Problem Low testosterone 257.2 Active Problem ED (erectile dysfunction) 607.84 Active Problem Colon polyp 211.3 Active Problem Morbid obesity with BMI of 40.0-44.9, adult 278.01 Active Problem Body mass index (BMI) of 40.0-44.9 in adult V85.41 Active Assessment High cholesterol 272.0 Active Assessment Low testosterone 257.2 Active Assessment 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 Status , Is sierra leonean your primary language? Yes Dec 30, 2014 [...] Dec 30, 2014 Occupation: . works in [employer] Dec 30, 2014 Family history Qualifier Description Comment Date Reported Maternal Grandmother Comment not available Dec 30, 2014 Paternal Grandmother Comment not available Dec 30, 2014 Siblings Comment not available Dec 30, 2014 Maternal Grandfather Comment not available Dec 30, 2014 Children Comment not available Dec 30, 2014 Father alive Comment not available Dec 30, 2014 Paternal Grandfather Comment not available Dec 30, 2014 Mother Comment not available Dec 30, 2014 Other: Comment not available Dec 30, 2014 Vital Signs Date/Time: Dec 30, 2014 Weight 325 lbs Height 72 in Cardiac Monitoring Heart Rate 63 /min Blood Pressure Diastolic 78 mm Hg Blood Pressure Systolic 130 mm Hg Summary Purpose eClinicalWorks Submission
--- OUTSIDE RECORDS SUMMARY | 2018-03-27 13:01 | XMS REPORT ---
Author Author Mery Montaño Organization eClinicalWorks Address Unknown Phone Unavailable Care Team Providers Care System Support Analyst Name Role Phone Mery Montaño Unavailable Encounters Encounter Location Date [address] [facility] Dec 21, 2014 follow up on mri [facility] Dec 30, [address] [facility] Feb 09, [address] [facility] Feb 24, [address] [facility] August 30, [address] [facility] September 16, [address] [facility] September 23, [address] [facility] Mar 03, [address] [facility] Feb 21, [address] [facility] Feb 22, [address] [facility] Feb 09, [address] [facility] June 23, [address] [facility] July 07, 2015 consult- med/ testosterone [facility] Apr 18, [address] [facility] May 17, [address] [facility] Mar 29, [address] [facility] Apr 06, 2015 [...] End Date Status Dosage Sildenafil Citrate MEDISPAN [id number] 20 MG orally LAST REFILL, MUST SEE DOCTOR May 09, 2016 Active TAKE 2-5 TABLETS ONCE DAILY (ONLY IF NEEDED) FOR SEXUAL ACTIVITY Social History Social History Element Qualifiers Date Reported Last Colonoscopy: . 11/2014Apr 18, 2015 Where or with whom do you live ? . alone Apr 18, 2015 Depression Screening: . negative Apr 18, 2015 hobbies/sports . [place] Apr 18, 2015 children . None Apr 18, 2015 Ethnicity . Status , Is malaysian your primary language? Yes Apr 18, 2015 [...] Apr 18, 2015 Occupation: . works in [employer] Apr 18, 2015 Summary Purpose eClinicalWorks Submission
--- OUTSIDE RECORDS SUMMARY | 2018-03-27 13:01 | XMS REPORT ---
Author Author Mery Montaño Organization eClinicalWorks Address Unknown Phone Unavailable Care Team Providers Care Access Service Representative Name Role Phone Mery Montaño Unavailable Encounters Encounter Location Date 3 MONTH FOLLOW UP [facility] Dec 21, 2014 follow up on mri [facility] Dec 30, 2014 refill [facility] Feb 09, 2015 REFILL [facility] Feb 24, 2015 PHYSICAL [facility] August 30, 2014 2 week follow up [facility] September 16, 2014 Unknown [facility] September 23, 2014 Prior Auth [facility] Mar 03, 2015 RF [facility] Apr 19, 2016 Test results [facility] Apr 10, 2016 Unknown [facility] Feb 21, 2015 Cialis 5 mg [facility] Feb 22, 2015 Unknown [facility] Feb 09, 2016 REFILLS [facility] Mar 22, 2016 Refill [facility] June 23, 2015 NEW RX [facility] July 07, 2015 consult- med/ testosterone [facility] Apr 18, 2015 Unknown [facility] May 17, 2015 Unknown [facility] Mar 29, 2015 Unknown [facility] Apr 06, 2015 Test results [facility] Apr 10, 2016 Problems Problem Type Condition ICD-9 Code Onset Dates Condition Status Problem Impotence of organic origin N52.9 Active Problem Personal history of malignant melanoma of skin Z85.820 Active Problem Prediabetes R73.03 Active Problem Testicular hypofunction E29.1 Active Problem Mixed hyperlipidemia E78.2 Active Problem Colon polyp 211.3 Active Problem Morbid obesity E66.01 Active Problem Pure hypercholesterolemia E78.0 Active Problem Body mass index 40.0-44.9, adult Z68.41 Active Medications Medication Code System Code Instructions Start Date End Date Status Dosage Sildenafil Citrate MEDISPAN [address]-00 20 MG Orally once a day (MUST SEE DOCTOR BEFORE NEXT REFILL) Feb 09, 2016 Active 2-5 tablet Social History Social History Element Qualifiers Date Reported Last Colonoscopy: . 11/2014Mar 22, 2016 Where or with whom do you live ? . alone Mar 22, 2016 Depression Screening: . negative Mar 22, 2016 hobbies/sports . [place] Mar 22, 2016 children . None Mar 22, 2016 Ethnicity . Status , Is indonesian your primary language? Yes Mar 22, 2016 [...] Mar 22, 2016 Occupation: . works in [employer] Mar 22, 2016 Summary Purpose eClinicalWorks Submission
--- OUTSIDE RECORDS SUMMARY | 2018-03-27 13:01 | XMS REPORT ---
Author Author Mery Schaefer Organization eClinicalWorks Address Unknown Phone Unavailable Care Team Providers Care Cylinder Grinder Name Role Phone Mery Schaefer Unavailable Encounters Encounter Location Date 3 MONTH FOLLOW UP [facility] Dec 21, 2014 follow up on mri [facility] Dec 30, 2014 refill [facility] Feb 09, 2015 REFILL [facility] Feb 24, 2015 PHYSICAL [facility] August 30, 2014 2 week follow up [facility] September 16, 2014 Unknown [facility] September 23, 2014 Unknown [facility] Feb 21, 2015 Problems Problem Type Condition ICD-9 Code [...] (BMI) of 40.0-44.9 in adult V85.41 Active Social History Social History Element Qualifiers Date Reported Last Colonoscopy: . 11/2014Dec 30, 2014 Where or with whom do you live ? . alone Dec 30, 2014 Depression Screening: . negative Dec 30, 2014 hobbies/sports . Rugby Dec 30, 2014 children . None Dec 30, 2014 Ethnicity . Status , Is cymro your primary language? Yes Dec 30, 2014 [...] Dec 30, 2014 Occupation: . works in [employer] Dec 30, 2014 Summary Purpose eClinicalWorks Submission
--- OUTSIDE RECORDS SUMMARY | 2018-03-27 13:01 | XMS REPORT ---
Author Author Mery Schaefer [facility] eClinicalWorks Address Unknown Phone Unavailable Care Team Providers Care Internship Name Role Phone Mery Schaefer Unavailable Encounters Encounter Location Date 3 MONTH FOLLOW UP [facility] Dec 21, 2014 follow up on mri [facility] Dec 30, 2014 refill [facility] Feb 09, 2015 REFILL [facility] Feb 24, 2015 PHYSICAL [facility] August 30, 2014 Unknown [facility] Mar 29, 2015 2 week follow up [facility] September 16, 2014 Unknown [facility] Apr 06, 2015 Unknown [facility] September 23, 2014 Prior Auth [facility] Mar 03, 2015 Unknown [facility] Feb 21, 2015 Cialis 5 mg [facility] Feb [...] 30, 2014 Ethnicity . Status , Is sami your primary language? Yes Dec 30, 2014 [...] Dec 30, 2014 Occupation: . works in [employer] Dec 30, 2014 Summary Purpose eClinicalWorks Submission
--- OUTSIDE RECORDS SUMMARY | 2018-03-27 13:01 | XMS REPORT ---
Author Author Miguelangel Gallegos Organization eClinicalWorks Address Unknown Phone Unavailable Care Team Providers Care Director Of Plant Operations Name Role Phone Miguelangel Gallegos CP Unavailable Encounters Encounter Location Date 3 MONTH FOLLOW UP [facility] Dec 21, 2014 follow up on mri [facility] Dec 30, 2014 refill [facility] Feb 09, 2015 REFILL [facility] Feb 24, 2015 PHYSICAL [facility] August 30, 2014 2 week follow up [facility] September 16, 2014 Unknown [facility] September 23, 2014 Prior Auth [facility] Mar 03, 2015 Test results [facility] Apr 10, 2016 Unknown [facility] Feb 21, 2015 Cialis 5 mg [facility] Feb 22, 2015 Unknown [facility] Feb 09, 2016 REFILLS [facility] Mar 22, 2016 Refill [facility] June 23, 2015 NEW RX [facility] July 07, 2015 consult- med/ testosterone [facility] Apr 18, 2015 Unknown [facility] May 17, 2015 Unknown [facility] Mar 29, 2015 Unknown [facility] Apr 06, 2015 Test results [facility] Apr 10, 2016 Problems Problem Type Condition ICD-9 Code Onset Dates Condition Status Assessment Mixed hyperlipidemia E78.2 Active Problem Impotence of [...] Date End Date Status Dosage Atorvastatin Calcium MEDISPAN [address]-05 10 MG Orally Once a day Apr 10, 2016 Active 1 tablet Social History Social History Element Qualifiers Date Reported Last Colonoscopy: . 11/2014Mar 22, 2016 Where or with whom do you live ? . alone Mar 22, 2016 Depression Screening: . negative Mar 22, 2016 hobbies/sports . Rugby Mar 22, 2016 children . None Mar 22, 2016 Ethnicity . Status , Is croatian your primary language? Yes Mar 22, 2016 [...] Mar 22, 2016 Occupation: . works in [email or web address] Mar 22, 2016 Summary Purpose eClinicalWorks Submission
--- OUTSIDE RECORDS SUMMARY | 2018-03-27 13:01 | XMS REPORT ---
Author Author Mery Schaefer [facility] eClinicalWorks Address Unknown Phone Unavailable Care Team Providers Care Software Engineering Supervisor Name Role Phone Mery Schaefer Unavailable Encounters Encounter Location Date 3 MONTH FOLLOW UP [facility] Dec 21, 2014 follow up on mri [facility] Dec 30, 2014 refill [facility] Feb 09, 2015 REFILL [facility] Feb 24, 2015 PHYSICAL [facility] August 30, 2014 2 week follow up [facility] September 16, 2014 Unknown [facility] September 23, [...] Date End Date Status Dosage Androderm MEDISPAN [address]-27 4 MG/24HR Transdermal Once a day Dec [...] 30, 2014 Ethnicity . Status , Is canadian your primary language? Yes Dec 30, 2014 [...] Dec 30, 2014 Occupation: . works in [employer] Dec 30, 2014 Summary Purpose eClinicalWorks Submission
--- OUTSIDE RECORDS SUMMARY | 2018-03-27 13:01 | XMS REPORT ---
Author Author Mery Montaño Organization eClinicalWorks Address Unknown Phone Unavailable Care Team Providers Care Electrical Plumbing Supervisor Name Role Phone Mery Montaño Unavailable Encounters Encounter Location Date 3 MONTH FOLLOW UP [facility] Dec 21, 2014 follow up on mri [facility] Dec 30, 2014 refill [facility] Feb 09, 2015 REFILL [facility] Feb 24, 2015 PHYSICAL [facility] August 30, 2014 2 week follow up [facility] September 16, 2014 Unknown [facility] September 23, 2014 Prior Auth [facility] Mar 03, 2015 Test results [facility] Apr 10, 2016 Unknown [facility] Feb 21, 2015 Cialis 5 mg [facility] Feb 22, 2015 Unknown [facility] Feb 09, 2016 REFILLS [facility] Mar 22, 2016 Refill [facility] June 23, 2015 NEW RX [facility] July 07, 2015 consult- med/ testosterone [facility] Apr 18, 2015 Unknown [facility] May 17, 2015 Unknown [facility] Mar 29, 2015 Unknown [facility] Apr 06, 2015 Test results [facility] Apr [...] End Date Status Dosage Atorvastatin Calcium MEDISPAN [address]-34 10 MG Orally Once a day Apr 10, 2016 Active 1 tablet Social History Social History Element Qualifiers Date Reported Last Colonoscopy: . 11/2014Mar 22, 2016 Where or with whom do you live ? . alone Mar 22, 2016 Depression Screening: . negative Mar 22, 2016 hobbies/sports . Rugby Mar 22, 2016 children . None Mar 22, 2016 Ethnicity . Status , Is yakut your primary language? Yes Mar 22, 2016 [...] Mar 22, 2016 Occupation: . works in [email or web address] Mar 22, 2016 Summary Purpose eClinicalWorks Submission
--- OUTSIDE RECORDS SUMMARY | 2018-03-27 13:01 | XMS REPORT | Encounter Summary ---
Author Organization Unknown Address [address] [place] [address] Phone [phone] Care Team Providers Care Huller Operator Name Role Phone Mery Scheafer MD 3 [phone] Reason for Visit Medical Complaint; cough,chest congestion,stuffy nose x5days Instructions 1. Influenza Tamiflu 75 mg capsule 2. Cough Bromfed DM 2 mg-30 mg-10 mg/5 mL syrup 3. Wheezing rapid flu (A+B) ProAir HFA 90 mcg/actuation aerosol inhaler Discussion Note Drink plenty of fluids, wash hands frequently, rest, complete medication if symptoms persist follow up with pcp or [facility] Patient educational handouts: No information available. Plan of Care Reminders Provider Appointments None recorded. Lab Rapid Flu (A+B) 08/15/2015 [facility] Referral None recorded. Procedures None recorded. Surgeries None recorded. Imaging None recorded. Medications Name Start Date Bromfed DM 2 mg-30 mg-10 mg/5 mL syrup Take 10 mL every 6-8 hours by oral route as needed. ProAir HFA 90 mcg/actuation aerosol inhaler Inhale 2 puff(s) every 4 hours by inhalation route as needed. Tamiflu 75 mg capsule Take 1 capsule(s) twice a day by oral route for 5 days. Medications Administered None recorded. 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 Conjunctivitis Active Encounter Common Cold Active Encounter Acute Sinusitis Active Encounter Acute Upper Respiratory Infection Active Encounter Allergic Rhinitis Active Encounter Influenza Active Encounter Wheezing Active Encounter Cough Active Encounter Procedures Date Name Performed by Appendectomy Information not available Removal of Tonsils Information not available Vaccine List Vaccine Type influenza, seasonal, injectable 12/20/2010 Tdap 07/12/2011 typhoid, ViCPs 07/12/2011 yellow fever 07/12/2011 Social History Smoking Status Never Smoker Past Encounters 08/15/2015 Influenza; Cough; Wheezing Nikole Cole, MICA BUILDER: [address] [facility] , [place] [address], Ph. History of Present Illness Rywoh-Lrnyocohhc-Ggmmrej Reported By: Patient HPI: Location: head/sinuses, chest. Quality: productive cough, nasal/sinus congestion, hacking cough. Duration: 5days. Severity: moderate. Onset/Timing: gradual. Context: allergies. Modifying factors: OTC medication Review of Systems Basic Reported By: Patient Constitutional: Constitutional: fever Pqqs-Pfqr-Blyya-Throat: Nose: nose/sinus problems Respiratory: Respiratory: cough, wheezing Physical Exam Adult Male Complete, Adult Basic Constitutional: General Appearance: healthy-appearing, morbidly obese. Level of Distress: NAD; hacking cough. Ambulation: ambulating normally Psychiatric: Mental Status: active and alert. Orientation: to time, to place, to person Eyes: Lids and Conjunctivae: non-injected, no discharge, no pallor. Pupils: PERRLA. Corneas: grossly intact, fluorescein stain--normal. EOM: EOMI. Lens: clear. Sclerae: non-icteric. Vision: peripheral vision grossly intact, acuity grossly intact Cfo-Lgcj-Kjkuz-Throat: Ears: no lesions on external ear, no outer ear tenderness, EACs clear, TMs clear, TM mobility normal. Nose: no lesions on external nose, nares patent, no septal deviation, nasal passages clear, no sinus tenderness, no nasal discharge. Lips, Teeth, and Gums: no mouth or lip ulcers, no bleeding gums, normal dentition. Oropharynx: moist mucous membranes, no erythema, no exudates, tonsils not enlarged. Hearing: no hearing loss Lungs: Respiratory effort: no dyspnea, no tachypnea, no use of accessory muscles, no intercostal retractions. Auscultation: good air movement, inspiratory wheezing, expiratory wheezing Cardiovascular: Heart Auscultation: RRR, no murmurs. Pulses including femoral / pedal: normal throughout Skin: Inspection and palpation: no rash, no lesions, no ulcer, no induration, no nodules, good turgor, no jaundice, no abnormal nevi
--- OUTSIDE RECORDS SUMMARY | 2018-03-27 13:01 | XMS REPORT | Encounter Summary ---
Author Organization Unknown Address [address] [place] [address] Phone [phone] Care Team Providers Care Director Of Career Services Name Role Phone Mery Schaefer MD 3 [phone] Reason for Visit Medical Complaint Instructions 1. Congestion of nasal sinus Depo-Medrol 80 mg/mL suspension for injection fluticasone 50 mcg/actuation nasal spray,suspension 2. Influenza-like symptoms rapid flu (A+B) 3. Cough benzonatate 100 mg capsule Discussion Note: None recorded. Patient educational handouts: No information available. Plan of Care Patient Instructions Ptto follow up with PCP/ER for increasing symptoms. Pt to take Tylenol for pain/fever. Sinus rinse encouraged. Increase fluid intake. Take allergy meds every night as needed. Reminders Provider Appointments None recorded. Lab Rapid Flu (A+B) 02/29/2016 [facility] Referral None recorded. Procedures None recorded. Surgeries None recorded. Imaging None recorded. Medications Name Start Date Androderm 4 mg/24 hr transdermal 24 hour patch benzonatate 100 mg capsule Take 2 capsules 3 times a day by oral route for 10 days. rddxeyjabdthtet-lybovvjpyrizvka-IX 2 mg-30 mg-10 mg/5 mL syrup Cialis 5 mg tablet TAKE ONE TABLET BY MOUTH EVERY DAY Depo-Medrol 80 mg/mL suspension for injection 80 mg/mL IM injectable x 1 fluticasone 50 mcg/actuation nasal spray,suspension [place] 1 spray every day by intranasal route. hydrocodone 7.5 mg-ibuprofen 200 mg tablet ProAir HFA 90 mcg/actuation aerosol inhaler Suprep Bowel Prep Kit 17.5 gram-3.13 gram-1.6 gram oral solution TAKE DIRECTED Tamiflu 75 mg capsule testosterone 50 mg/5 gram (1 %) transdermal gel APPLY 1 PACKET EVERY MORNING Medications Administered Name Date Depo-Medrol 80 mg/mL suspension for injection 80 mg/mL IM injectable x 1 [id number]:12:02 Vitals Height Weight BMI Blood Pressure 6 ft 2 in 325 lbs 41.7 120/78 Lab Results Date Name Result Description Value Range Status Rapid Flu (A+B) Influenza a negative Influenza B negative Allergies Name Reaction Severity [...] History Smoking Status Never Smoker Past Encounters 02/29/2016 Congestion of Nasal Sinus; Influenza-like Symptoms; Cough Yamilet Mendenhall, TAILMAN: [address] [facility] [address], [place] [address], Ph. History of Present Illness Yvjlj-Rahustbroc-Jdngalk Reported By: Patient HPI: Location: head/sinuses. Quality: nasal/sinus congestion. Duration: 1days. Severity: moderate. Onset/Timing: gradual. Context: no sick contacts, no foreign travel, non-smoker. Modifying factors: OTC medication. Associated Symptoms: no sputum production, no shortness of breath, no wheezing, no change in number of pillows needed to sleep at night, no sweats, no significant weight gain, no significant weight loss, no morning cough, no sore throat, no vomiting, no diarrhea, no rash, no nausea Review of Systems Basic Reported By: Patient Constitutional: Constitutional: no fever Eyes: Eyes: no eye complaints Bhus-Yipi-Fvwmt-Throat: Ears: no ear complaints. Nose: nose/sinus problems. Mouth/Throat: no sore throat, no bleeding gums, no mouth complaints, no teeth problems Cardiovascular: Cardiovascular: no chest pain, no shortness of breath, no known heart murmur Respiratory: Respiratory: no cough, no wheezing, no shortness of breath Gastrointestinal: Gastrointestinal: no abdominal pain, no vomiting / diarrhea Genitourinary: Genitourinary: no urinary complaints, no discharge Musculoskeletal: Musculoskeletal: no muscle aches, no muscle weakness, no arthralgias/joint pain, no back pain Skin: Skin: no abnormal / changing mole, no jaundice, no rashes Neurologic: Neurologic: no loss of consciousness, no weakness, no numbness, no seizures, no dizziness, no headaches Physical Exam Adult Basic, Adult Male Complete Reported By: Patient Constitutional: General Appearance: obese. Level of Distress: mild distress. Ambulation: ambulating normally Psychiatric: Mental Status: active and alert. Orientation: to time, to place, to person Pju-Ennc-Xxrot-Throat: Ears: no lesions on external ear, no outer ear tenderness, EACs clear, TMs clear, TM mobility normal. Hearing: no hearing loss. Nose: no lesions on external nose, nares patent, no septal deviation, nasal passages clear, sinus tenderness, nasal discharge; sinus congestion. Lips, Teeth, and Gums: no mouth or lip ulcers, no bleeding gums, normal dentition. Oropharynx: moist mucous membranes, no erythema, no exudates, tonsils not enlarged Neck: Lymph Nodes: no cervical LAD, no supraclavicular LAD, no axillary LAD, no inguinal LAD Lungs: Respiratory effort: no dyspnea, no tachypnea, no use of accessory muscles, no intercostal retractions. Auscultation: breath sounds normal, good air movement; intermittent cough Cardiovascular: Heart Auscultation: RRR, no murmurs Neurologic: Gait and Station: normal gait, normal station
--- OUTSIDE RECORDS SUMMARY | 2018-03-27 13:01 | XMS REPORT ---
Author Author Miguelangel Gallegos Organization eClinicalWorks Address Unknown Phone Unavailable Care Team Providers Care Civil Engineer In Training Name Role Phone Miguelangel Gallegos CP Unavailable Encounters Encounter Location Date 3 MONTH FOLLOW UP [facility] Dec 21, 2014 follow up on mri [facility] Dec 30, 2014 refill [facility] Feb 09, 2015 REFILL [facility] Feb 24, 2015 PHYSICAL [facility] August 30, 2014 2 week follow up [facility] September 16, 2014 Unknown [facility] September 23, 2014 Prior Auth [facility] Mar 03, 2015 Unknown [facility] Feb 21, 2015 Cialis 5 mg [facility] Feb 22, 2015 Refill [facility] June 23, 2015 consult- med/ testosterone [facility] [...] End Date Status Dosage Sildenafil Citrate MEDISPAN [address]-54 20 mg Orally 2 to 5 prn [...] 18, 2015 Ethnicity . Status , Is telugu your primary language? Yes Apr 18, 2015 [...] Apr 18, 2015 Occupation: . works in [employer] Apr 18, 2015 Summary Purpose eClinicalWorks Submission
--- OUTSIDE RECORDS SUMMARY | 2018-03-27 13:01 | XMS REPORT ---
Author Author Miguelangel Gallegos Organization eClinicalWorks Address Unknown Phone Unavailable Care Team Providers Care Community Arts Officer Name Role Phone Miguelangel Gallegos CP Unavailable Encounters Encounter Location Date 3 MONTH FOLLOW UP [facility] Dec 21, 2014 follow up on mri [facility] Dec 30, 2014 refill [facility] Feb 09, 2015 REFILL [facility] Feb 24, 2015 PHYSICAL [facility] August 30, 2014 2 week follow up [facility] September 16, 2014 Unknown [facility] September 23, 2014 Prior Auth [facility] Mar 03, 2015 Unknown [facility] Feb 21, 2015 Cialis 5 mg [facility] Feb 22, [...] 30, 2014 Ethnicity . Status , Is arabic your primary language? Yes Dec 30, 2014 [...] Dec 30, 2014 Occupation: . works in [employer] Dec 30, 2014 Summary Purpose eClinicalWorks Submission
--- OUTSIDE RECORDS SUMMARY | 2018-03-27 13:01 | XMS REPORT | Encounter Summary ---
Author Organization Unknown Address [address] [place] [address] Phone [phone] Care Team Providers Care Operations Liaison Name Role Phone Mery Schaefer MD 3 [phone] Reason for Visit Medical Complaint Instructions 1. [...] day by oral route for 10 days. svkzyyrykgioqkz-pnetnmkdfwdbofw-QI 2 mg-30 mg-10 mg/5 mL syrup Cialis 5 mg tablet TAKE ONE TABLET BY MOUTH EVERY DAY Depo-Medrol 80 mg/mL suspension for injection 80 mg/mL IM injectable x 1 fluticasone 50 mcg/actuation nasal spray,suspension May 1 spray every day by intranasal route. [...] injection 80 mg/mL IM injectable x 1 [id number]:12:02 Vitals Height Weight BMI Blood Pressure 6 [...] Nasal Sinus; Influenza-like Symptoms; Cough Yamilet Mendenhall, PHP LAMP DEVELOPER: [address], [place] [address], Ph. History of Present Illness Vfqzh-Lojzqinjlm-Bxdxqml Reported By: Patient HPI: Location: head/sinuses. Quality: [...] no fever Eyes: Eyes: no eye complaints Rhnd-Qcus-Iyjgs-Throat: Ears: no ear complaints. Nose: nose/sinus problems. [...] Orientation: to time, to place, to person Awj-Xzkp-Spyqj-Throat: Ears: no lesions on external ear, no [...]
--- OUTSIDE RECORDS SUMMARY | 2018-03-27 13:01 | XMS REPORT ---
Author Author Mery Schaefer Organization [employer] Address Unknown Phone Unavailable Care Team Providers Care Sailing Instructor Name Role Phone Mery Schaefer Unavailable Encounters Encounter Location Date 3 MONTH FOLLOW UP [facility] Dec 21, 2014 follow up on mri [facility] Dec 30, 2014 refill [facility] Feb 09, 2015 REFILL [facility] Feb 24, 2015 PHYSICAL [facility] August 30, 2014 2 week follow up [facility] September 16, 2014 Unknown [facility] September 23, 2014 Unknown [facility] Feb [...] 30, 2014 Ethnicity . Status , Is portuguese your primary language? Yes Dec 30, 2014 [...] Dec 30, 2014 Occupation: . works in [employer] Dec 30, 2014 Summary Purpose [employer] Submission
--- OUTSIDE RECORDS SUMMARY | 2018-03-27 13:02 | XMS REPORT | Encounter Summary ---
Author Organization Unknown Address [address] [place] [id number] Phone [phone] Care Team Providers Care Route Agent Name Role Phone Mery Schaefer MD 3 [phone] Reason for Visit Medical Complaint Instructions 1. Congestion of nasal sinus fluticasone 50 mcg/actuation nasal spray,suspension Medrol (Kahlil) 4 mg tablets in a dose pack 2. Ear pressure sensation 3. Body mass index 40+ - severely obese body mass index: care instructions learning about healthy weight 4. Anterior rhinorrhea Discussion Note: None recorded. Plan of Care Reminders Provider Appointments None recorded. Lab None recorded. Referral None recorded. Procedures None recorded. Surgeries None recorded. Imaging None recorded. Medications Name Start Date atorvastatin 10 mg tablet TAKE 1 TABLET BY MOUTH EVERY DAY Flucelvax Quad 2553-7600 (PF) 60 mcg (15 mcg x 4)/0.5 mL IM syringe TO BE ADMINISTERED BY PHARMACIST FOR IMMUNIZATION fluticasone 50 mcg/actuation nasal spray,suspension Rogers 2 sprays every day by intranasal route as directed for 30 days. Medrol (Kahlil) 4 mg tablets in a dose pack Take by oral route as directed Medications Administered None recorded. Vitals Height Weight BMI Blood Pressure 6 ft 2 in 340 lbs 43.7 kg/m2 124/86 mm[Hg] Lab Results None recorded. Allergies Code Code System Name Reaction Severity [...] not available Vaccine List Vaccine Type influenza, injectable, quadrivalent 02/17/2018 influenza, seasonal, injectable 12/21/2010 Tdap 07/12/2011 typhoid, ViCPs 07/12/2011 yellow fever 07/12/2011 Social History Smoking Status Never Smoker Past Encounters 03/10/2018 Congestion of Nasal Sinus; Ear Pressure Sensation; Body Mass Index 40+ - Severely Obese; Anterior Rhinorrhea Richard Chan PA-C: [address], [address], [place] [address], Ph. History of Present Illness [id number] Reported By: Patient HPI: Location: head/sinuses. Quality: nasal/sinus congestion. Duration: 3days. Severity: mild. Onset/Timing: gradual. Context: no sick contacts, no foreign travel, non-smoker. Associated Symptoms: no sputum production, no shortness of breath, no wheezing, no change in number of pillows needed to sleep at night, no sweats, no significant weight gain, no significant weight loss, no morning cough, no sore throat, no vomiting, no diarrhea, no rash, no nausea, no fever, no muscle aches, no headache Notes: b/l clogged ears , Review of Systems Basic Reported By: Patient Constitutional: Constitutional: no fever Eyes: Eyes: no eye complaints Sslp-[id number]-Ecdkk-Throat: Ears: ear pain. Nose: nose/sinus problems. Mouth/Throat: no sore throat, [...] Reported By: Patient Constitutional: General Appearance: healthy-appearing, morbidly obese. Level of Distress: NAD. Ambulation: ambulating normally Psychiatric: Mental Status: active and alert. Orientation: to time, to place, to person Eyes: Lids and Conjunctivae: non-injected, no discharge, no pallor. Pupils: PERRLA. Corneas: grossly intact. EOM: EOMI. Lens: clear. Sclerae: non-icteric. Vision: acuity grossly intact, peripheral vision grossly intact Psv-Fggt-Mkbxf-Throat: Ears: no lesions on external ear, no outer ear tenderness, EACs clear, TMs clear, TM mobility normal. Hearing: no hearing loss. Nose: no lesions on external nose, no septal deviation, nasal passages clear, no sinus tenderness, nares non-patent, nasal discharge--rhinorrhea. Lips, Teeth, and Gums: no mouth or lip ulcers, no bleeding gums, normal dentition. Oropharynx: moist mucous membranes, no erythema, no exudates, tonsils not enlarged Neck: Neck: supple, trachea midline, no masses, FROM. Lymph Nodes: no cervical LAD, no supraclavicular LAD. Thyroid: no enlargement, non-tender, no nodules Lungs: Respiratory effort: no dyspnea, no tachypnea, no use of accessory muscles, no intercostal retractions. Percussion: no dullness, flatness, or hyperresonance. Auscultation: breath sounds normal, good air movement Cardiovascular: Heart Auscultation: RRR, no murmurs Musculoskeletal:: Motor Strength and Tone: normal motor strength, normal tone, normal. Joints, Bones, and Muscles: normal movement of all extremities, no bony abnormalities, no contractures, no malalignment, no tenderness. Extremities: no cyanosis, no edema Neurologic: Gait and Station: normal gait, normal station Skin: Inspection and palpation: no rash, no lesions, no ulcer, no abnormal nevi, no induration, no nodules, good turgor, no jaundice. Nails: normal Back: Thoracolumbar Appearance: normal curvature
--- OUTSIDE RECORDS SUMMARY | 2018-03-27 13:02 | XMS REPORT | Encounter Summary ---
Author Organization Unknown Address [address] [place] [id number] Phone [phone] Care Team Providers Care Environmental Department Manager Name Role Phone Mery Schaefer MD 3 [phone] Reason for Visit Medical Complaint Instructions 1. Acute pharyngitis rapid strep group A, throat sore throat: care instructions culture, respiratory 2. Influenza-like symptoms rapid flu (A+B) 3. Acute bronchitis bronchitis: care instructions 4. Cough cough: care instructions benzonatate 200 mg capsule 5. Morbid obesity when you are overweight: care instructions Discussion Note: None recorded. Plan of Care Patient Instructions Sore Throat: Care Instructions Your Care Instructions Infection by bacteria or a virus causes most sore throats. Cigarette smoke, dry air, air pollution, allergies, and yelling can also cause a sore throat. Sore throats can be painful and annoying. Fortunately, most sore throats go away on their own. If you have a bacterial infection, your doctor may prescribe antibiotics. Follow-up care is a winkler part of your treatment and safety. Be sure to make and go to all appointments, and call your doctor if you are having problems. It's also a good idea to know your test results and keep a list of the medicines you take. How can you care for yourself at home? If your doctor prescribed antibiotics, take them as directed. Do not stop taking them just because you feel better. You need to take the full course of antibiotics. Gargle with warm salt water once an hour to help reduce swelling and relieve discomfort. Use 1 teaspoon of salt mixed in 1 cup of warm water. Take an wtzc-yfx-sltxfwr pain medicine, such as acetaminophen (Tylenol), ibuprofen (Advil, Motrin), or naproxen (Aleve). Read and follow all instructions on the label. Be careful when taking zqgk-fvt-hivntoq cold or flu medicines and Tylenol at the same time. Many of these medicines have acetaminophen, which is Tylenol. Read the labels to make sure that you are not taking more than the recommended dose. Too much acetaminophen (Tylenol) can be harmful. Drink plenty of fluids. Fluids may help soothe an irritated throat. Hot fluids, such as tea or soup, may help decrease throat pain. Use niib-pdk-ytkbwcb throat lozenges to soothe pain. Regular cough drops or hard candy may also help. These should not be given to young children because of the risk of choking. Do not smoke or allow others to smoke around you. If you need help quitting, talk to your doctor about stop-smoking programs and medicines. These can increase your chances of quitting for good. Use a vaporizer or humidifier to add moisture to your bedroom. Follow the directions for cleaning the machine. When should you call for help? Call your doctor now or seek immediate medical care if: You have new or worse trouble swallowing. Your sore throat gets much worse on one side. Watch closely for changes in your health, and be sure to contact your doctor if you do not get better as expected. Where can you learn more? Go to www.[employer], log into the web portal, and enter U420 in the search box to learn more about Sore Throat: Care Instructions. Care instructions adapted under license by [facility]. This care instruction is for use with your licensed healthcare professional. If you have questions about a medical condition or this instruction, always ask your healthcare professional. [employer] disclaims any warranty or liability for your use of this information. When You Are Overweight: Care Instructions Your Care Instructions If you're overweight, your doctor may recommend that you make changes in your eating and exercise habits. Being overweight can lead to serious health problems, such as high blood pressure, heart disease, type 2 diabetes, and arthritis, or it can make these problems worse. Eating a healthy diet and being more active can help you reach and stay at a healthy weight. You dont have to make huge changes all at once. Start by making small changes in your eating and exercise habits. To lose weight, you need to burn more calories than you take in. You can do this by eating healthy foods in reasonable amounts and becoming more active every day. Follow-up care is a winkler part of your treatment and safety. Be sure to make and go to all appointments, and call your doctor if you are having problems. It's also a good idea to know your test results and keep a list of the medicines you take. How can you care for yourself at home? Improve your eating habits. You'll be more successful if you work on changing one eating habit at a time. All foods, if eaten in moderation, can be part of healthy eating. Remember to: Eat a variety of foods from each food group. Include grains, vegetables, fruits, dairy, and protein foods. Limit foods high in fat, sugar, and calories. Eat slowly. And don't do anything else, such as watch TV, while you are eating. Pay attention to portion sizes. Put your food on a smaller plate. Plan your meals ahead of time. You'll be less likely to grab something that's not as healthy. Get active. Regular activity can help you feel better, have more energy, and burn more calories. If you haven't been active, start slowly. Start with at least 30 minutes of moderate activity on most days of the week. Then gradually increase the amount of activity. Try for 60 or 90 minutes a day, at least 5 days a week. There are a lot of ways to fit activity into your life. You can: Walk or bike to the store. Or walk with a friend, or walk the dog. Mow the lawn, rake leaves, shovel snow, or do some gardening. Use the stairs instead of the elevator, at least for a few floors. Change your thinking. Your thoughts have a lot to do with how you feel and what you do. When you're trying to reach a healthy weight, changing how you think about certain things may help. Here are some ideas: Don't compare yourself to others. Healthy bodies come in all shapes and sizes. Pay attention to how hungry or full you feel. When you eat, be aware of why you're eating and how much you're eating. Focus on improving your health instead of dieting. Dieting almost never works over the termite treater helper. Ask your doctor about other health professionals who can help you reach a healthy weight. A dietitian can help you make healthy changes in your diet. An access control specialist or personal financial representative can help you develop a safe and effective exercise program. A counselor or psychiatrist can help you cope with issues such as depression, anxiety, or family problems that can make it hard to focus on reaching a healthy weight. Get support from your family, your doctor, your friends, a support groupand support yourself. Where can you learn more? Go to www.[employer], log into the web portal, and enter L869 in the search box to learn more about When You Are Overweight: Care Instructions. Care instructions adapted under license by [facility]. This care instruction is for use with your licensed healthcare professional. If you have questions about a medical condition or this instruction, always ask your healthcare professional. [employer] disclaims any warranty or liability for your use of this information. Influenza (Flu): Care Instructions Your Care Instructions Influenza (flu) is an infection in the lungs and breathing passages. It is caused by the influenza virus. There are different strains, or types, of the flu virus from year to year. Unlike the common cold, the flu comes on suddenly and the symptoms, such as a cough, congestion, fever, chills, fatigue, aches, and pains, are more severe. These symptoms may last up to 10 days. Although the flu can make you feel very sick, it usually doesn't cause serious health problems. Home treatment is usually all you need for flu symptoms. But your doctor may prescribe antiviral medicine to prevent other health problems, such as pneumonia, from developing. Older people and those who have a long-term health condition, such as lung disease, are most at risk for having pneumonia or other health problems. Follow-up care is a winkler part of your treatment and safety. Be sure to make and go to all appointments, and call your doctor if you are having problems. Its also a good idea to know your test results and keep a list of the medicines you take. How can you care for yourself at home? Get plenty of rest. Drink plenty of fluids, enough so that your urine is light yellow or clear like water. If you have kidney, heart, or liver disease and have to limit fluids, talk with your doctor before you increase the amount of fluids you drink. Take an mmif-pjq-goowqbh pain medicine if needed, such as acetaminophen (Tylenol), ibuprofen (Advil, Motrin), or naproxen (Aleve), to relieve fever, headache, and muscle aches. Read and follow all instructions on the label. No one younger than 20 should take aspirin. It has been linked to Jamarcus syndrome, a serious illness. Do not smoke. Smoking can make the flu worse. If you need help quitting, talk to your doctor about stop-smoking programs and medicines. These can increase your chances of quitting for good. Breathe moist air from a hot shower or from a sink filled with hot water to help clear a stuffy nose. Before you use cough and cold medicines, check the label. These medicines may not be safe for young children or for people with certain health problems. If the skin around your nose and lips becomes sore, put some petroleum jelly on the area. To ease coughing: Drink fluids to soothe a scratchy throat. Suck on cough drops or plain hard candy. Take an qrrq-wpp-ejimvua cough medicine that contains dextromethorphan to help you get some sleep. Read and follow all instructions on the label. Raise your head at night with an extra pillow. This may help you rest if coughing keeps you awake. Take any prescribed medicine exactly as directed. Call your doctor if you think you are having a problem with your medicine. To avoid spreading the flu Wash your hands regularly, and keep your hands away from your face. Stay home from school, work, and other public places until you are feeling better and your fever has been gone for at least 24 hours. The fever needs to have gone away on its own without the help of medicine. Ask people living with you to talk to their doctors about preventing the flu. They may get antiviral medicine to keep from getting the flu from you. To prevent the flu in the future, get a flu vaccine every fall. Encourage people living with you to get the vaccine. Cover your mouth when you cough or sneeze. When should you call for help? Call 911 anytime you think you may need emergency care. For example, call if: You have severe trouble breathing. Call your doctor now or seek immediate medical care if: You have new or worse trouble breathing. You seem to be getting much sicker. You feel very sleepy or confused. You have a new or higher fever. You get a new rash. Watch closely for changes in your health, and be sure to contact your doctor if: You begin to get better and then get worse. You are not getting better after 1 week. Where can you learn more? Go to www.[employer], log into the web portal, and enter L652 in the search box to learn more about Influenza (Flu): Care Instructions. Care instructions adapted under license by [facility]. This care instruction is for use with your licensed healthcare professional. If you have questions about a medical condition or this instruction, always ask your healthcare professional. [employer] disclaims any warranty or liability for your use of this information. Cough: Care Instructions Your Care Instructions A cough is your body's response to something that bothers your throat or airways. Many things can cause a cough. You might cough because of a cold or the flu, bronchitis, or asthma. Smoking, postnasal drip, allergies, and stomach acid that backs up into your throat also can cause coughs. A cough is a symptom, not a disease. Most coughs stop when the cause, such as a cold, goes away. You can take a few steps at home to cough less and feel better. Follow-up care is a winkler part of your treatment and safety. Be sure to make and go to all appointments, and call your doctor if you are having problems. It's also a good idea to know your test results and keep a list of the medicines you take. How can you care for yourself at home? Drink lots of water and other fluids. This helps thin the mucus and soothes a dry or sore throat. Honey or lemon juice in hot water or tea may ease a dry cough. Take cough medicine as directed by your doctor. Prop up your head on pillows to help you breathe and ease a dry cough. Try cough drops to soothe a dry or sore throat. Cough drops don't stop a cough. Medicine-flavored cough drops are no better than candy-flavored drops or hard candy. Do not smoke. Avoid secondhand smoke. If you need help quitting, talk to your doctor about stop-smoking programs and medicines. These can increase your chances of quitting for good. When should you call for help? Call 911 anytime you think you may need emergency care. For example, call if: You have severe trouble breathing. Call your doctor now or seek immediate medical care if: You cough up blood. You have new or worse trouble breathing. You have a new or higher fever. You have a new rash. Watch closely for changes in your health, and be sure to contact your doctor if: You cough more deeply or more often, especially if you notice more mucus or a change in the color of your mucus. You have new symptoms, such as a sore throat, an earache, or sinus pain. You do not get better as expected. Where can you learn more? Go to www.[employer], log into the web portal, and enter D279 in the search box to learn more about Cough: Care Instructions. Care instructions adapted under license by [facility]. This care instruction is for use with your licensed healthcare professional. If you have questions about a medical condition or this instruction, always ask your healthcare professional. [employer] disclaims any warranty or liability for your use of this information. Bronchitis: Care Instructions Your Care Instructions Bronchitis is inflammation of the bronchial tubes, which carry air to the lungs. The tubes swell and produce mucus, or phlegm. The mucus and inflamed bronchial tubes make you cough. You may have trouble breathing. Most cases of bronchitis are caused by viruses like those that cause colds. Antibiotics usually do not help and they may be harmful. Bronchitis usually develops rapidly and lasts about 2 to 3 weeks in otherwise healthy people. Follow-up care is a winkler part of your treatment and safety. Be sure to make and go to all appointments, and call your doctor if you are having problems. It's also a good idea to know your test results and keep a list of the medicines you take. How can you care for yourself at home? Take all medicines exactly as prescribed. Call your doctor if you think you are having a problem with your medicine. Get some extra rest. Take an ohnv-gly-bndgvgk pain medicine, such as acetaminophen (Tylenol), ibuprofen (Advil, Motrin), or naproxen (Aleve) to reduce fever and relieve body aches. Read and follow all instructions on the label. Do not take two or more pain medicines at the same time unless the doctor told you to. Many pain medicines have acetaminophen, which is Tylenol. Too much acetaminophen (Tylenol) can be harmful. Take an eazb-lsg-qdjorhk cough medicine that contains dextromethorphan to help quiet a dry, hacking cough so that you can sleep. Avoid cough medicines that have more than one active ingredient. Read and follow all instructions on the label. Breathe moist air from a humidifier, hot shower, or sink filled with hot water. The heat and moisture will thin mucus so you can cough it out. Do not smoke. Smoking can make bronchitis worse. If you need help quitting, talk to your doctor about stop-smoking programs and medicines. These can increase your chances of quitting for good. When should you call for help? Call 911 anytime you think you may need emergency care. For example, call if: You have severe trouble breathing. Call your doctor now or seek immediate medical care if: You have new or worse trouble breathing. You cough up dark brown or bloody mucus (sputum). You have a new or higher fever. You have a new rash. Watch closely for changes in your health, and be sure to contact your doctor if: You cough more deeply or more often, especially if you notice more mucus or a change in the color of your mucus. You are not getting better as expected. Where can you learn more? Go to www.[employer], log into the web portal, and enter H333 in the search box to learn more about Bronchitis: Care Instructions. Care instructions adapted under license by [facility]. This care instruction is for use with your licensed healthcare professional. If you have questions about a medical condition or this instruction, always ask your healthcare professional. [employer] disclaims any warranty or liability for your use of this information. Reminders Provider Appointments None recorded. Lab Rapid Flu (A+B) 12/03/2017 [facility] Rapid Strep Group a, Throat 12/03/2017 [facility] Culture, Respiratory 12/03/2017 [facility] Referral None recorded. Procedures None recorded. Surgeries None recorded. Imaging None recorded. Medications Name Start Date Androderm 4 mg/24 hr transdermal 24 hour patch atorvastatin 10 mg tablet TAKE 1 TABLET BY MOUTH EVERY DAY azithromycin 250 mg tablet benzonatate 100 mg capsule TAKE ONE CAPSULE BY MOUTH 3 TIMES A DAY benzonatate 200 mg capsule Take 1 capsule 3 times a day by oral route as directed for 10 days. bticfuafltyidzv-bizbzgbtdclbphi-QE 2 mg-30 mg-10 mg/5 mL syrup TAKE 10 ML EVERY 4 HOURS BY ORAL ROUTE NEEDED. Cialis 5 mg tablet TAKE ONE TABLET BY MOUTH EVERY DAY codeine 10 mg-guaifenesin 100 mg/5 mL oral liquid TAKE 1 TEASPOONFUL BY MOUTH EVERY 4 HOURS Depo-Medrol 80 mg/mL suspension for injection 80 mg/mL IM injectable x 1 doxycycline hyclate 100 mg capsule fluticasone 50 mcg/actuation nasal spray,suspension INHALE ONE (1) SPRAY(S) INTO EACH NOSTRIL TWICE A DAY. hydrocodone 7.5 mg-ibuprofen 200 mg tablet TAKE 1 TO 2 TABLETS BY MOUTH EVERY 4 HOURS NEEDED FOR PAIN ipratropium-albuterol 0.5 mg-3 mg(2.5 mg base)/3 mL nebulization soln USE 3ML VIA NEBULIZER EVERY 6 HOURS methylprednisolone 4 mg tablets in a dose pack TAKE DIRECTED. naproxen 500 mg tablet omeprazole 40 mg capsule,delayed release Suprep Bowel Prep Kit 17.5 gram-3.13 gram-1.6 gram oral solution TAKE DIRECTED Tamiflu 75 mg capsule Take 1 capsule twice a day by oral route for 5 days. testosterone 50 mg/5 gram (1 %) transdermal gel APPLY 1 PACKET EVERY MORNING Ventolin HFA 90 mcg/actuation aerosol inhaler INHALE 2 PUFFS PO Q 4 TO 6 HOURS PRN Vimovo 500 mg-20 mg tablet,immediate and delay release Medications Administered None recorded. Vitals Height Weight BMI Blood Pressure 6 ft 2 in 340 lbs 43.7 kg/m2 (1) 118/80 mm[Hg] (2) 118/74 mm[Hg] Lab Results Date Name Specimen Result Interpretation Description Value Range Status Address Rapid Strep Group a, Throat Result negative [facility]: [address] [place] [address] Swab Location Left and Right tonsillar pillars [facility]: [address] [place] [address] Rapid Flu (A+B) Influenza a negative [facility]: [address] [place] [address] Influenza B negative [facility]: [address] [place] [address] Allergies Code Code System Name Reaction Severity [...] History Smoking Status Never Smoker Past Encounters 12/03/2017 Acute Pharyngitis; Influenza-like Symptoms; Acute Bronchitis; Cough; Morbid Obesity Yamilet Mendenhall, [facility]: [address], [address], [place] [address], Ph. History of Present Illness Throat-Oral Complaint Reported By: Patient HPI: Location: throat. Quality: sore throat, congested, dry or hacking cough. Severity: moderate. Duration: 3 days. Onset/Timing: sudden. Context: no sick contacts, no foreign travel, non-smoker. Modifying factors: OTC medication. Associated Symptoms: no sputum production, no shortness of breath, no wheezing, no change in number of pillows needed to sleep at night, no sweats, no significant weight gain, no significant weight loss, no morning cough, no vomiting, no diarrhea, no rash, no nausea, sore throat Review of Systems Basic Reported By: Patient Constitutional: Constitutional: no fever Eyes: Eyes: no eye complaints Xhkd-Mxco-Nolol-Throat: Ears: no ear complaints. Nose: nose/sinus problems. Mouth/Throat: no bleeding gums, no mouth complaints, no teeth problems, sore throat Cardiovascular: Cardiovascular: no chest pain, no shortness of breath, no known heart murmur Respiratory: Respiratory: no wheezing, no shortness of breath, cough Gastrointestinal: Gastrointestinal: no abdominal pain, no vomiting / diarrhea Genitourinary: Genitourinary: no urinary complaints, no discharge Musculoskeletal: Musculoskeletal: no muscle aches, no muscle weakness, no arthralgias/joint pain, no back pain Skin: Skin: no abnormal / changing mole, no jaundice, no rashes Neurologic: Neurologic: no loss of consciousness, no weakness, no numbness, no seizures, no dizziness, no headaches Physical Exam Adult Basic, Adult Female Complete, Adult Male Complete Reported By: Patient Constitutional: General Appearance: healthy-appearing, morbidly obese. Level of Distress: mild distress. Ambulation: ambulating normally Psychiatric: Mental Status: active and alert. Orientation: to time, to place, to person Tnj-Kuig-Whzwc-Throat: Ears: no lesions on external ear, no outer ear tenderness, EACs clear. Hearing: no hearing loss. Nose: no lesions on external nose, nares patent, no septal deviation, nasal passages clear, no sinus tenderness, nasal discharge. Lips, Teeth, and Gums: no mouth or lip ulcers, no bleeding gums, normal dentition. Oropharynx: moist mucous membranes, no exudates, tonsils not enlarged, erythema Neck: Neck: supple, trachea midline. Lymph Nodes: no cervical LAD, no supraclavicular LAD Lungs: Respiratory effort: no dyspnea, no tachypnea, no use of accessory muscles, no intercostal retractions. Auscultation: rhonchi Cardiovascular: Heart Auscultation: RRR, no murmurs Neurologic: Gait and Station: normal gait, normal station
[2018-03-27 13:15] VITALS: BP 115/76
--- NOTE | 2018-03-27 14:51 | Operative Report ---
DATE OF PROCEDURE: NAME OF THE PROCEDURE: Colonoscopy. PREPROCEDURE DIAGNOSIS: Patient has a history of colon polyps, here for surveillance colonoscopy. DETAILS OF PROCEDURE: After informed written consent, premedications with monitored anesthesia care, standard adult video Olympus colonoscope was introduced into the rectum and all the way into the terminal ileum. Terminal ileum, cecum, ileocecal valve all appeared to be normal. The ascending, transverse, descending colon appeared to be normal. The sigmoid colon in the mid sigmoid showed evidence of a 6-mm colon polyp. This was removed with a cold snare. Retroflexion in the rectum is normal. IMPRESSION: Colon polyp. RECOMMENDATIONS: Check that with pathology. Followup colonoscopy in 3 years. Patient to follow up in the office in 4 weeks. Job#: [id number]
== END | disposition home or self-care (01) ==
LOC: OR 12:56
PROVIDERS: ATTEND Internal Medicine Gastroenterology
DX: Z09 Encounter for follow-up examination after completed treatment for conditions other than malignant neoplasm (principal); D12.5 Benign neoplasm of sigmoid colon; Z71.3 Dietary counseling and surveillance; E78.00 Pure hypercholesterolemia, unspecified; E66.01 Morbid (severe) obesity due to excess calories; Z01.810 Encounter for preprocedural cardiovascular examination; Z68.42 Body mass index [BMI] 45.0-49.9, adult; Z87.891 Personal history of nicotine dependence; Z80.0 Family history of malignant neoplasm of digestive organs
CPT/HCPCS: 45385; 93005; J2001; J2250; J2704; 45378